=== PATIENT | male | born 1955 | race American Indian/Alaskan Native ===

== ENCOUNTER 2017-06-11 11:21 | Emergency (ER) | payer BC ==
[2017-06-11] MEDS ORDERED: TESSALON PERLES PO ONE (15:10)
--- NOTE | 2017-06-11 15:44 | XRay Report ---
ROUTINE CHEST, TWO VIEWS: HISTORY: Cough. The trachea, heart, mediastinal contour, lung jaimes and bony thorax are unremarkable. IMPRESSION: Unremarkable chest x-ray.
--- NOTE | 2017-06-11 16:41 | Emergency Department Report ---
- General Chief Complaint: Upper Respiratory Infection Stated Complaint: BAD COUGH, NOSE BLEED Time Seen by Provider: 06/11/17 15:09 Source: patient Mode of arrival: Ambulatory Limitations: No Limitations - History of Present Illness Initial Comments: This is a 61-year-old male nontoxic, well nourished in appearance, no acute signs of distress presents to the ED with c/o of dry cough 4 days. Patient denies any recent travels, long car rides, or recent hospital stays. Patient denies any chest pain, shortness of breath, hemoptysis, fever, chills, nausea, vomiting, headache, stiff neck, abdominal pain, numbness, tingling. Patient denies any calf pain or calf tenderness. Patient does state that he takes lisinopril for his hypertension. Patient denies any drug allergies. MD Complaint: cough -: days(s) (4) Severity scale (0 -10): 0 Consistency: constant Improves With: nothing Worsens With: nothing Associated Symptoms: cough. denies: fever, chills, myalgias, diaphoresis, headache, rhinorrhea, nasal congestion, sore throat, stiff neck, chest pain, shortness of breath, abdominal pain, nausea, vomiting, diarrhea, dysuria, rash, confusion, right sweats, weight loss, epistaxis, hoarseness, ear pain Treatments Prior to Arrival: none - Related Data Previous Rx's Medication Instructions Recorded Last Taken Type predniSONE [Deltasone] 40 mg PO QDAY #5 tab 06/11/17 Unknown Rx Allergies Allergy/AdvReac Type Severity Reaction Status Date / Time No Known Allergies Allergy Unverified 06/11/17 11:26 ED Review of Systems ROS: Stated complaint: BAD COUGH, NOSE BLEED Other details as noted in HPI Constitutional: denies: chills, fever Eyes: denies: eye pain, eye discharge, vision change ENT: denies: ear pain, throat pain Respiratory: cough. denies: shortness of breath, wheezing Cardiovascular: denies: chest pain, palpitations Endocrine: no symptoms reported Gastrointestinal: denies: abdominal pain, nausea, diarrhea Genitourinary: denies: urgency, dysuria Musculoskeletal: denies: back pain, joint swelling, arthralgia Skin: denies: rash, lesions Neurological: denies: headache, weakness, paresthesias Psychiatric: denies: anxiety, depression Hematological/Lymphatic: denies: easy bleeding, easy bruising ED Past Medical Hx - Past Medical History Previous Medical History?: Yes Hx Hypertension: Yes Additional medical history: Neck with pulled muscle - Surgical History Past Surgical History?: No - Social History Smoking Status: Never Smoker Substance Use Type: Alcohol, Prescribed - Medications Home Medications: Home Medications Medication Instructions Recorded Confirmed Last Taken Type predniSONE [Deltasone] 40 mg PO QDAY #5 tab 06/11/17 Unknown Rx ED Physical Exam - General Limitations: No Limitations General appearance: alert, in no apparent distress - Head Head exam: Present: atraumatic, normocephalic - Eye Eye exam: Present: normal appearance, PERRL, EOMI Pupils: Present: normal accommodation - ENT ENT exam: Present: normal exam, normal orophraynx, mucous membranes moist, TM's normal bilaterally, normal external ear exam - Neck Neck exam: Present: normal inspection, full ROM. Absent: tenderness, meningismus, lymphadenopathy, thyromegaly - Respiratory Respiratory exam: Present: normal lung sounds bilaterally. Absent: respiratory distress, wheezes, rales, rhonchi, stridor, chest wall tenderness, accessory muscle use, decreased breath sounds, prolonged expiratory - Cardiovascular Cardiovascular Exam: Present: regular rate, normal rhythm, normal heart sounds. Absent: irregular rhythm, systolic murmur, diastolic murmur, rubs, gallop - GI/Abdominal GI/Abdominal exam: Present: soft, normal bowel sounds. Absent: distended, tenderness, guarding, rebound, rigid, diminished bowel sounds - Rectal Rectal exam: Present: deferred - Extremities Exam Extremities exam: Present: normal inspection, full ROM, normal capillary refill. Absent: tenderness, pedal edema, joint swelling, calf tenderness - Back Exam Back exam: Present: normal inspection, full ROM. Absent: tenderness, CVA tenderness (R), CVA tenderness (L), muscle spasm, paraspinal tenderness, vertebral tenderness, rash noted - Neurological Exam Neurological exam: Present: alert, oriented X3, CN II-XII intact, normal gait, reflexes normal - Psychiatric Psychiatric exam: Present: normal affect, normal mood - Skin Skin exam: Present: warm, dry, intact, normal color. Absent: rash - Other Other exam information: Negative Homans test. No calf pain or calf tenderness. ED Course Vital Signs 06/11/17 11:26 Temperature 97.7 F Pulse Rate 97 H Respiratory 18 Rate Blood Pressure 165/99 O2 Sat by Pulse 98 Oximetry - Reevaluation(s) Reevaluation #1: 06/11/17 16:40 Patient is speaking in full sentences with no signs of distress noted. ED Medical Decision Making - Medical Decision Making this is a 61-year-old male that presents with nonproductive cough. Patient is stable and was examined by me. Upon examination and symptoms I believe this is related to lisinopril vs bronchitis. Chest x-ray has been obtained and dictated by radiologist with normal exam. Wells criteria 0 point. Upon examination and symptoms there is no obvious signs of DVT or PE. Patient be treated with prednisone. Patient was instructed Follow-up with a primary care doctor in 3-5 days or if symptoms worsen and continue return to emergency room as soon as possible. At time time of discharge, the patient does not seem toxic or ill in appearance. No acute signs of distress noted. Patient agrees to discharge treatment plan of care. No further questions noted by the patient. Critical care attestation.: If time is entered above; I have spent that time in minutes in the direct care of this critically ill patient, excluding procedure time. ED Disposition Clinical Impression: Cough, Cough due to LETICIA inhibitor, Bronchiolitis Disposition: DC-01 TO HOME OR SELFCARE Is pt being admited?: No Does the pt Need Aspirin: No Condition: Stable Instructions: Prednisone (By mouth), Acute Bronchitis (ED) Additional Instructions: Follow-up with a primary care doctor in 3-5 days or if symptoms worsen and continue return to emergency room as soon as possible. Prescriptions: predniSONE [Deltasone] 40 mg PO QDAY #5 tab Referrals: GAVIN HENRY MD [Primary Care Provider] - 3-5 Days PRIMARY CARE, [Referring] - 3-[address] [facility] [Outside] - 3-5 Days [facility] [Outside] - 3-5 Days Forms: Work/School Release Form(ED)
[2017-06-11 17:00] VITALS: BP 158/99
== END 2017-06-11 16:58 | disposition home or self-care (01) ==
LOC: ED 11:21
DX: J21.9 Acute bronchiolitis, unspecified (principal); I10 Essential (primary) hypertension
CPT/HCPCS: 71046; 96372; 99283; J2930

== ENCOUNTER 2017-11-03 10:27 | Emergency (ER) | payer BC ==
[2017-11-03 11:44] LABS: BUN/Creatinine Ratio 11; Blood Urea Nitrogen 8 mg/dL (9-20); Calcium 8.9 mg/dL (8.4-10.2); Hemolysis Index 34
[2017-11-03 11:53] LABS: Basophils # (Auto) 0.1 K/mm3 (0.0-0.1); Basophils % (Auto) 1.1 % (0.0-1.8); Eosinophils # (Auto) 0.1 K/mm3 (0.0-0.4); Eosinophils % (Auto) 1.4 % (0.0-4.3); Hematocrit 42.1 % (35.5-45.6); Hemoglobin 14.1 gm/dl (11.8-15.2); Lymphocytes # (Auto) 2.6 K/mm3 (1.2-5.4); Lymphocytes % (Auto) 41.3 % (13.4-35.0); Mean Corpuscular HGB Conc 34 % (32-34); Mean Corpuscular Hemoglobin 32 pg (28-32); Mean Corpuscular Volume 95 fl (84-94); Monocytes # (Auto) 0.6 K/mm3 (0.0-0.8); Monocytes % (Auto) 9.6 % (0.0-7.3); Platelet Count 172 K/mm3 (140-440); Red Blood Count 4.43 M/mm3 (3.65-5.03); Red Cell Distribution Width 12.9 % (13.2-15.2)
--- NOTE | 2017-11-03 12:17 | XRay Report ---
ROUTINE CHEST, TWO VIEWS: HISTORY: Shortness of breath. Heart size is appears slightly increased since 06/11/17 exam. There is borderline to mild cardiomegaly and central pulmonary venous congestion on today's exam. The lungs are clear. No evidence for pneumonia, CHF or pneumothorax. IMPRESSION: Borderline to mild cardiomegaly and pulmonary venous congestion but no CHF
--- NOTE | 2017-11-03 12:30 | Emergency Department Report ---
ED Shortness of Breath HPI - General Chief Complaint: Dyspnea/Respdistress Stated Complaint: SHORTNESS OF BREATH Time Seen by Provider: 11/03/17 12:21 Source: patient Mode of arrival: Ambulatory Limitations: No Limitations - History of Present Illness Initial Comments: Patient is 62 years old male with history of hypertension and a recent diagnosis of weak valve according to his description. Patient stated that 2 months ago he had an echo and his offset press operator helper told him that he had a week above and he most likely need a stent. Patient denied any chest pain that he presented with shortness of breath. He stated that is similar to what he is to have. Patient stated that he got short of breath when he is walking. Patient denied any fever or cough. No nausea or vomiting. MD Complaint: shortness of breath - Related Data Previous Rx's Medication Instructions Recorded Last Taken Type predniSONE [Deltasone] 40 mg PO QDAY #5 tab 06/11/17 Unknown Rx Allergies Allergy/AdvReac Type Severity Reaction Status Date / Time No Known Allergies Allergy Unverified 06/11/17 11:26 ED Review of Systems ROS: Stated complaint: SHORTNESS OF BREATH Other details as noted in HPI Comment: All other systems reviewed and negative Constitutional: denies: chills, fever Respiratory: shortness of breath, SOB with exertion, SOB at rest. denies: cough , orthopnea, wheezing Cardiovascular: dyspnea on exertion. 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' - Surgical History Past Surgical History?: No Additional Surgical History: high cholesterol - Social History Smoking Status: Never Smoker Substance Use Type: Alcohol, Prescribed - Medications Home Medications: Home Medications Medication Instructions Recorded Confirmed Last Taken Type predniSONE [Deltasone] 40 mg PO QDAY #5 tab 06/11/17 Unknown Rx ED Physical Exam - General Limitations: No Limitations General appearance: alert, in no apparent distress - Head Head exam: Present: atraumatic, normocephalic, normal inspection - Eye Eye exam: Present: normal appearance - ENT ENT exam: Present: normal exam, normal orophraynx, mucous membranes moist - Neck Neck exam: Present: normal inspection, full ROM. Absent: tenderness, meningismus, lymphadenopathy, thyromegaly - Respiratory Respiratory exam: Present: normal lung sounds bilaterally. Absent: respiratory distress, wheezes, rales, rhonchi, chest wall tenderness, accessory muscle use, decreased breath sounds, prolonged expiratory - Cardiovascular Cardiovascular Exam: Present: regular rate, normal rhythm, normal heart sounds - GI/Abdominal GI/Abdominal exam: Present: soft, normal bowel sounds. Absent: distended, tenderness, guarding, rebound, rigid, organomegaly, mass, bruit, pulsatile mass , hernia - Extremities Exam Extremities exam: Present: normal inspection, full ROM, normal capillary refill - Back Exam Back exam: Present: normal inspection, full ROM. Absent: tenderness, CVA tenderness (R), CVA tenderness (L), muscle spasm, paraspinal tenderness, vertebral tenderness, rash noted - Neurological Exam Neurological exam: Present: alert, oriented X3, CN II-XII intact, normal gait, reflexes normal - Skin Skin exam: Present: warm, intact, normal color ED Course Vital Signs 11/03/17 11/03/17 11/03/17 10:43 10:46 12:46 Temperature 98.4 F 98.7 F Pulse Rate 97 H 93 H 90 Respiratory 20 16 14 Rate Blood Pressure 151/97 Blood Pressure 154/96 140/96 [Right] O2 Sat by Pulse 97 96 Oximetry 11/03/17 11/03/17 11/03/17 13:46 14:46 16:11 Temperature 98.3 F 98.7 F Pulse Rate 83 93 H 90 Respiratory 16 16 20 Rate Blood Pressure Blood Pressure 154/98 158/99 158/99 [Right] O2 Sat by Pulse 95 97 Oximetry ED Medical Decision Making - Lab Data Result diagrams: 11/03/17 11:11 11/03/17 11:11 - EKG Data -: EKG Interpreted by Mn EKG shows normal: sinus rhythm Rate: normal - EKG Data Interpretation: no acute changes - Radiology Data Radiology results: report reviewed Referring Physician: ED DOC Patient Name: KATY GOMES Date of : 1955 Sex: Male Report Date: 2017-11-03 Report Status: Finalized Findings [facility] [address] [place] [address] XRay Report Signed Patient: KATY GOMES MR#: [id number] : 1955 Acct:[id number] Age/Sex: 62 / M ADM Date: 11/03/17 Loc: ED Attending Dr: Ordering Physician: DANILO DOWD MD Date of Service: 11/03/17 Procedure(s): XR chest routine 2V Accession Number(s): [id number] cc: ED MD NILE Fluoro Time In Minutes: ROUTINE CHEST, TWO VIEWS: HISTORY: Shortness of breath. Heart size is appears slightly increased since 06/11/17 exam. There is borderline to mild cardiomegaly and central pulmonary venous congestion on today's exam. The lungs are clear. No evidence for pneumonia, CHF or pneumothorax. IMPRESSION: Borderline to mild cardiomegaly and pulmonary venous congestion but no CHF Transcribed By: TTR Dictated By: LICHA SANCHEZ JR, MD Electronically Authenticated By: LICHA SANCHEZ JR, MD Signed Date/Time: 11/03/17 1207 DD/ 1206 TD/TT: 11/03/17 1207 - Medical Decision Making Patient stated that he is feeling better. Extensive workup was done for this patient today. 2 sets of troponin is negative and before the EKG did not show any acute finding. No evidence of congestive heart failure. D-dimer is negative for possible PE. 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 Patient had already been seen by a offset press operator helper and had an echo done and he was off for surgery but patient denied surgery but he stated that he will go back and talk to his offset press operator helper. Patient will be discharged in stable condition with no active symptoms. I also informed the patient to return to the ER if his symptoms returned or get worse. Critical care attestation.: If time is entered above; I have spent that time in minutes in the direct care of this critically ill patient, excluding procedure time. ED Disposition Clinical Impression: Shortness of breath Disposition: DC-01 TO HOME OR SELFCARE Is pt being admited?: No Condition: Stable Instructions: Dyspnea (ED) Referrals: PRIMARY CARE, [Primary Care Provider] - 3-5 Days Forms: Work/School Release Form(ED)
[2017-11-03 13:35] LABS: INR 0.97 (0.87-1.13)
[2017-11-03 13:36] LABS: Partial Thromboplastin Time 33.9 Sec. (24.2-36.6)
[2017-11-03 15:27] VITALS: BP 158/99
== END 2017-11-03 16:12 | disposition home or self-care (01) ==
LOC: ED 10:27
DX: R06.02 Shortness of breath (principal); I10 Essential (primary) hypertension
CPT/HCPCS: 36415; 71046; 80048; 83880; 84484; 85025; 85379; 85610; 85730; 93005; 93010

== ENCOUNTER 2019-05-31 22:23 | Observation (INO) | payer BC ==
[2019-05-31] MEDS ORDERED: ASPIRIN 325 MG TAB PO ONE (22:44)
--- NOTE | 2019-05-31 23:29 | XRay Report ---
CHEST 1 VIEW INDICATION: MAIN: Chest Pain; Pt c/o difficulty breathing starting today. states he has a history of heart valve problems COMPARISON: 11/03/2017 FINDINGS: Support devices: None Heart: Within normal limits and unchanged. Lungs/Pleura: No acute pulmonary or pleural findings. IMPRESSION: 1. No active disease and no interval change. Signer Name: Charbel Young MD Signed: 05/31/2019 11:24 PM Workstation Name: [id number]
[2019-05-31 23:36] LABS: Hematocrit 41.3 % (35.5-45.6); Hemoglobin 14.4 gm/dl (11.8-15.2); Mean Corpuscular HGB Conc 35 % (32-34); Mean Corpuscular Volume 98 fl (84-94); Platelet Count 166 K/mm3 (140-440); Red Blood Count 4.22 M/mm3 (3.65-5.03); Red Cell Distribution Width 13.5 % (13.2-15.2)
[2019-05-31 23:58] LABS: BUN/Creatinine Ratio 15; Blood Urea Nitrogen 9 mg/dL (9-20); Calcium 9.3 mg/dL (8.4-10.2); Hemolysis Index 15
[2019-06-01 02:01] LABS: Total Cells Counted 100
[2019-06-01 02:03] LABS: Eosinophils % (Manual) 0 % (0.0-4.3)
[2019-06-01 02:04] LABS: Anisocytosis 1+; Basophils % (Manual) 0 % (0.0-1.8)
[2019-06-01 02:26] LABS: Platelet Estimate Consistent w Auto
[2019-06-01] MEDS ORDERED: LISINOPRIL 10 MG TAB PO ONE (06:57)
[2019-06-01] MEDS ORDERED: cloNIDine 0.1 MG TAB PO ONE (06:57)
[2019-06-01] MEDS ORDERED: ASPIRIN 325 MG TAB ONE (07:03)
--- NOTE | 2019-06-01 07:10 | Emergency Department Report ---
ED Shortness of Breath HPI - General Chief Complaint: Dyspnea/Respdistress Stated Complaint: SOB Time Seen by Provider: 06/01/19 06:46 Source: patient Mode of arrival: Ambulatory Limitations: No Limitations - History of Present Illness Initial Comments: 63-year-old male with a past medical history of hypertension and "valve problem" presents to the hospital complains of since yesterday. Symptoms initially occurred yesterday morning while lying down. Patient has continued to have dyspnea on exertion and lying supine the past day. Patient complains of intermittent chronic left-sided chest tightness similar to his pinched nerve pain is experienced in the past. Patient had one episode of vomiting in route to the hospital. He denies cough, fever, recent travel, history of PE/DVT, family history of CAD, or tobacco use. Patient reports he has had a negative stress testing In the past. He does not know the details of his valve problem but states he is being treated medically but a potential "stent is needed." His marine engine machinist apprentice Dr. Bettencourt affiliated with [facility]. Patient takes lisinopril 20 mg twice a day and Atrovent was started 40 mg 2 tabs once a day as well as aspirin 81 mg most days. As per medical record reviews reported patient has history of aortic valve problem based on the ER chart however, patient has not received previous cardiac workup at this hospital. 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 - Related Data Previous Rx's Medication Instructions Recorded Last Taken Type RX: predniSONE [Deltasone] 40 mg PO QDAY #5 tab 06/11/17 Unknown Rx Allergies Allergy/AdvReac Type Severity Reaction Status Date / Time No Known Allergies Allergy Unverified 06/11/17 11:26 ED Review of Systems ROS: Stated complaint: SOB Other details as noted in HPI Comment: All other systems reviewed and negative ED Past Medical Hx - Past Medical History Hx Hypertension: Yes Hx Congestive Heart Failure: Yes Additional medical history: Neck with pulled muscle, mild to moderate MR. nonobstructive CAD - Surgical History Past Surgical History?: No Additional Surgical History: high cholesterol - Social History Smoking Status: Never Smoker Substance Use Type: Alcohol - Medications Home Medications: Home Medications Medication Instructions Recorded Confirmed Last Taken Type RX: predniSONE [Deltasone] 40 mg PO QDAY #5 tab 06/11/17 Unknown Rx ED Physical Exam - General Limitations: No Limitations - Other Other exam information: General: No acute distress Head: Atraumatic Eyes: normal appearance ENT: Moist mucous membranes Neck: Normal appearance, no midline tenderness Chest: Clear to auscultation bilaterally CV: Regular rate and rhythm Abdomen: Soft, normal bowel sounds, nontender, nondistended, no rebound or guarding Back: Normal inspection Extremity: Normal inspection, full range of motion, no calf tenderness or leg edema Neuro: Alert O x 3, no facial asymmetry, speech clear, no gross motor sensory deficit Psych: Appropriate behavior Skin: No rash ED Course Vital Signs 05/31/19 06/01/19 06/01/19 22:42 06:58 07:00 Temperature 98.2 F Pulse Rate 111 H 100 H 98 H Respiratory 20 16 Rate Blood Pressure 187/125 169/103 Blood Pressure 171/120 [Left] O2 Sat by Pulse 99 95 Oximetry 06/01/19 09:07 Temperature Pulse Rate 102 H Respiratory 22 Rate Blood Pressure Blood Pressure 151/109 [Left] O2 Sat by Pulse 96 Oximetry - Consultations Consultation #1: 06/01/19 09:41 I contact ed pt's marine engine machinist apprentice Dr Bolton Pt had a cardiac cath in 2013 showing nonobstructive cad with 60% mid circumflex stenosis stress test 2018 normal 2018: EF 30-35% (suspected non ischemic cardiomyopathy, mild to Moderate MR pt qualifies for AICD based on EF but pt refused Lobster Man questions compliance with meds. ED Medical Decision Making - Lab Data Result diagrams: 05/31/19 23:11 05/31/19 23:11 Lab Results 05/31/19 05/31/19 06/01/19 Range/Units 23:11 23:11 01:41 WBC 10.7 (4.5-11.0) K/mm3 RBC 4.22 (3.65-5.03) M/mm3 Hgb 14.4 (11.8-15.2) gm/dl Hct 41.3 (35.5-45.6) % MCV 98 H (84-94) fl MCH 34 H (28-32) pg MCHC 35 H (32-34) % RDW 13.5 (13.2-15.2) % Plt Count 166 (140-440) K/mm3 Baso % (Auto) Grain Drier Operator Add Manual Diff Complete Total Counted 100 Seg Neuts % (Manual) 80.0 H (40.0-70.0) % Band Neutrophils % 0 % Lymphocytes % (Manual) 12.0 L (13.4-35.0) % Reactive Lymphs % (Man) 0 % Monocytes % (Manual) 8.0 H (0.0-7.3) % Eosinophils % (Manual) 0 (0.0-4.3) % Basophils % (Manual) 0 (0.0-1.8) % Metamyelocytes % 0 % Myelocytes % 0 % Promyelocytes % 0 % Blast Cells % 0 % Nucleated RBC % Not Reportable Seg Neutrophils # Man 8.6 H (1.8-7.7) K/mm3 Band Neutrophils # 0.0 K/mm3 Lymphocytes # (Manual) 1.3 (1.2-5.4) K/mm3 Abs React Lymphs (Man) 0.0 K/mm3 Monocytes # (Manual) 0.9 H (0.0-0.8) K/mm3 Eosinophils # (Manual) 0.0 (0.0-0.4) K/mm3 Basophils # (Manual) 0.0 (0.0-0.1) K/mm3 Metamyelocytes # 0.0 K/mm3 Myelocytes # 0.0 K/mm3 Promyelocytes # 0.0 K/mm3 Blast Cells # 0.0 K/mm3 WBC Morphology Not Reportable Hypersegmented Neuts Not Reportable Hyposegmented Neuts Not Reportable Hypogranular Neuts Not Reportable Smudge Cells Not Reportable Toxic Granulation Not Reportable Toxic Vacuolation Not Reportable Dohle Bodies Not Reportable Pelger-Huet Anomaly Not Reportable Martin Rods Not Reportable Platelet Estimate Consistent w auto Clumped Platelets Not Reportable Plt Clumps, EDTA Not Reportable Large Platelets Not Reportable Giant Platelets Not Reportable Platelet Satelliting Not Reportable Plt Morphology Comment Not Reportable RBC Morphology Not Reportable Dimorphic RBCs Not Reportable Polychromasia Not Reportable Hypochromasia Not Reportable Poikilocytosis Not Reportable Anisocytosis 1+ Microcytosis Not Reportable Macrocytosis Not Reportable Spherocytes Not Reportable Pappenheimer Bodies Not Reportable Sickle Cells Not Reportable Target Cells Not Reportable Tear Drop Cells Not Reportable Ovalocytes Not Reportable Helmet Cells Not Reportable He-[place] Bodies Not Reportable [place] Rings Not Reportable Withams Cells Not Reportable Bite Cells Not Reportable Crenated Cell Not Reportable Elliptocytes Not Reportable Acanthocytes (Spur) Not Reportable Rouleaux Not Reportable Hemoglobin C Crystals Not Reportable Schistocytes Not Reportable Malaria parasites Not Reportable Clay Bodies Not Reportable Hem Pathologist Commnt No D-Dimer (0-234) ng/mlDDU Sodium 141 (137-145) mmol/L Potassium 3.7 (3.6-5.0) mmol/L Chloride 100.4 (98-107) mmol/L Carbon Dioxide 22 (22-30) mmol/L Anion Gap 22 mmol/L BUN 9 (9-20) mg/dL Creatinine 0.6 L (0.8-1.5) mg/dL Estimated GFR > 60 ml/min BUN/Creatinine Ratio 15 % Glucose 104 H (75-100) mg/dL Calcium 9.3 (8.4-10.2) mg/dL Magnesium (1.7-2.3) mg/dL Troponin T < 0.010 < 0.010 (0.00-0.029) ng/mL 06/01/19 06/01/19 06/01/19 Range/Units 01:41 07:03 07:03 WBC (4.5-11.0) K/mm3 RBC (3.65-5.03) M/mm3 Hgb (11.8-15.2) gm/dl Hct (35.5-45.6) % MCV (84-94) fl MCH (28-32) pg MCHC (32-34) % RDW (13.2-15.2) % Plt Count (140-440) K/mm3 Baso % (Auto) Add Manual Diff Total Counted Seg Neuts % (Manual) (40.0-70.0) % Band Neutrophils % % Lymphocytes % (Manual) (13.4-35.0) % Reactive Lymphs % (Man) % Monocytes % (Manual) (0.0-7.3) % Eosinophils % (Manual) (0.0-4.3) % Basophils % (Manual) (0.0-1.8) % Metamyelocytes % % Myelocytes % % Promyelocytes % % Blast Cells % % Nucleated RBC % Seg Neutrophils # Man (1.8-7.7) K/mm3 Band Neutrophils # K/mm3 Lymphocytes # (Manual) (1.2-5.4) K/mm3 Abs React Lymphs (Man) K/mm3 Monocytes # (Manual) (0.0-0.8) K/mm3 Eosinophils # (Manual) (0.0-0.4) K/mm3 Basophils # (Manual) (0.0-0.1) K/mm3 Metamyelocytes # K/mm3 Myelocytes # K/mm3 Promyelocytes # K/mm3 Blast Cells # K/mm3 WBC Morphology Hypersegmented Neuts Hyposegmented Neuts Hypogranular Neuts Smudge Cells Toxic Granulation Toxic Vacuolation Dohle Bodies Pelger-Huet Anomaly Martin Rods Platelet Estimate Clumped Platelets Plt Clumps, EDTA Large Platelets Giant Platelets Platelet Satelliting Plt Morphology Comment RBC Morphology Dimorphic RBCs Polychromasia Hypochromasia Poikilocytosis Anisocytosis Microcytosis Macrocytosis Spherocytes Pappenheimer Bodies Sickle Cells Target Cells Tear Drop Cells Ovalocytes Helmet Cells He-[place] Bodies [place] Rings Withams Cells Bite Cells Crenated Cell Elliptocytes Acanthocytes (Spur) Rouleaux Hemoglobin C Crystals Schistocytes Malaria parasites Clay Bodies Hem Pathologist Commnt D-Dimer 589.76 H (0-234) ng/mlDDU Sodium (137-145) mmol/L Potassium (3.6-5.0) mmol/L Chloride (98-107) mmol/L Carbon Dioxide (22-30) mmol/L Anion Gap mmol/L BUN (9-20) mg/dL Creatinine (0.8-1.5) mg/dL Estimated GFR ml/min BUN/Creatinine Ratio % Glucose (75-100) mg/dL Calcium (8.4-10.2) mg/dL Magnesium 1.50 L (1.7-2.3) mg/dL Troponin T < 0.010 (0.00-0.029) ng/mL - EKG Data -: EKG Interpreted by Ri EKG shows normal: sinus rhythm, intervals (prolonged QT), ST-T waves (LVH with secondary repoll) Rate: tachycardia (110) - EKG Data When compared to previous EKG there are: no significant change - Radiology Data Radiology results: report reviewed CHEST 1 VIEW INDICATION: MAIN: Chest Pain; Pt c/o difficulty breathing starting today. states he has a history of heart valve problems COMPARISON: 11/03/2017 FINDINGS: Support devices: None Heart: Within normal limits and unchanged. Lungs/Pleura: No acute pulmonary or pleural findings. IMPRESSION: 1. No active disease and no interval change. CTA CHEST WITH CONTRAST INDICATION : Shortness of breath, elevated d-dimer. TECHNIQUE: Axial imaging performed through the chest, with contrast bolus timing set to maximize opacification of the pulmonary arteries. Sagittal and coronal reformatted images. 3-plane MIP reformatted images were obtained. All CT scans at this location are performed using CT dose reduction for ALARA by means of automated exposure control. Omnipaque 300 100 mL of intravenous contrast administered. COMPARISON: AP chest dated 05/31/2019 FINDINGS: Bolus: Contrast bolus timing is adequate. PTE: No filling defect is present to suggest PTE. Medi astinum: Mild cardiomegaly is evident. No pericardial effusion. The aorta is normal caliber and widely patent. Normal thyroid gland, tracheobronchial tree and esophagus. No pathologic mediastinal adenopathy. Lungs: Trace bilateral pleural effusions are identified measuring less than 1 cm in thickness. There is minor subpleural atelectasis at the right lung base, otherwise, the lungs are clear. No significant underlying parenchymal lung disease is detected. Bones: Degenerative changes in the spine with nothing acute. Upper abdomen: Limited imaging of the upper abdomen shows nothing acute. IMPRESSION: No evidence for pulmonary embolus. Mild cardiomegaly and trace pleural effusions suggesting mild CHF. - Medical Decision Making sob due chf ekg without acute ischemic changes, qt prolongation improved on repeat, neg trop x 3 in ed last ef 30-25% last year, mild to moderate mr, non obstructive cad pt provided lasix in ed, his am dose of lisinopril and PO kcl, and IV mag (prolonged qt noted) case d/w Pt's marine engine machinist apprentice regarding past cardiac workup - Differential Diagnosis IA, unstable angina, valve stenosis,PE, CHF Critical Care Time: No Critical care attestation.: If time is entered above; I have spent that time in minutes in the direct care of this critically ill patient, excluding procedure time. ED Disposition Clinical Impression: Acute exacerbation of CHF (congestive heart failure), Uncontrolled hypertension, Hypomagnesemia, Prolonged QT interval, Mitral valve regurgitation, Nonischemic cardiomyopathy, CAD (coronary artery disease) Disposition: OP ADMIT IP TO THIS HOSP Is pt being admited?: Yes Condition: Stable Time of Disposition: 09:48 (Dr Rush as per [place])
[2019-06-01] MEDS ORDERED: MAGNESIUM SULFATE 2 GM/50 ML BAG IV ONE (07:11)
--- NOTE | 2019-06-01 09:16 | Cat Scan Report ---
CTA CHEST WITH CONTRAST INDICATION : Shortness of breath, elevated d-dimer. TECHNIQUE: Axial imaging performed through the chest, with contrast bolus timing set to maximize opa cification of the pulmonary arteries. Sagittal and coronal reformatted images. 3-plane MIP reformatte d images were obtained. All CT scans at this location are performed using CT dose reduction for ALAR A by means of automated exposure control. Omnipaque 300 100 mL of intravenous contrast administered. COMPARISON: AP chest dated 05/31/2019 FINDINGS: Bolus: Contrast bolus timing is adequate. PTE: No filling defect is present to suggest PTE. Mediastinum: Mild cardiomegaly is evident. No pericardial effusion. The aorta is normal caliber and widely patent. Normal thyroid gland, tracheobronchial tree and esophagus. No pathologic mediastinal adenopathy. Lungs: Trace bilateral pleural effusions are identified measuring less than 1 cm in thickness. There is minor subpleural atelectasis at the right lung base, otherwise, the lungs are clear. No significa nt underlying parenchymal lung disease is detected. Bones: Degenerative changes in the spine with nothing acute. Upper abdomen: Limited imaging of the upper abdomen shows nothing acute. IMPRESSION: No evidence for pulmonary embolus. Mild cardiomegaly and trace pleural effusions suggesting mild CHF. Signer Name: Haroon Ortega Jr, MD Signed: 06/01/2019 9:12 AM Workstation Name: [id number]
[2019-06-01] MEDS ORDERED: FUROSEMIDE 40 MG/4 ML INJ IV ONE (09:25)
[2019-06-01] MEDS ORDERED: POTASSIUM CHLORIDE ER 20 MEQ TAB PO ONE ×2 (09:26→10:26)
[2019-06-01] MEDS ORDERED: FUROSEMIDE 40 MG/4 ML INJ ONE (10:25)
--- NOTE | 2019-06-01 10:41 | Progress Note ---
Assessment and Plan Assessment and plan: Patient is a 63-year-old male with a past medical history of hypertension and "valve problem" presents to the hospital complains of since yesterday. Symptoms initially occurred yesterday morning while lying down. Patient has continued to have dyspnea on exertion and lying supine the past day. Patient complains of intermittent chronic left-sided chest tightness similar to his pinched nerve pain is experienced in the past. Patient had one episode of vomiting in route to the hospital. He denies cough, fever, recent travel, history of PE/DVT, family history of CAD, or tobacco use. Patient reports he has had a negative stress testing In the past. He does not know the details of his valve problem but states he is being treated medically but a potential "stent is needed." His charging plug placer Dr. Bettencourt affiliated with [facility]. Patient takes lisinopril 20 mg twice a day and Atrovent was started 40 mg 2 tabs once a day as well as aspirin 81 mg most days. As per medical record reviews reported patient has history of aortic valve problem based on the ER chart however, patient has not received previous cardiac workup at this hospital. 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 pCXR Impression: No active disease and no interval change CTA chest Impression: IMPRESSION: No evidence for pulmonary embolus. Mild cardiomegaly and trace pleural effusions suggesting mild CHF. Acute on chronic decompensated systolic heart failure: treat with IV lasix bid, consult Cardiology, order ECHO SIRS, non-infection, no organ dysfunction: treat the heart failure Hypomagensemia: replete and recheck Elevated D-Dimer: CTA chest negative for PE Macrocytosis, borderline thrombocytopenia: inquire about ETOH overuse or vitamin deficiency DVT ppx History Interval history: Patient was seen and examined. Follow-up on current diagnosis. Overnight uneventful as no events directly reported to me. Patient denies any chest pain, shortness breath, nausea/vomiting or severe headaches. Imaging, nursing note, chart, labs and old chart reviewed. Discussed with patient. PMH: as hpi PSH: SH: FH: ROS: Constitutional: denies: fever ENT: denies: throat or neck pain Respiratory: denies: cough, shortness of breath Cardiovascular: denies: chest pain Endocrine: denies unexplained weight loss or gain Gastrointestinal: denies: abdominal pain, nausea Genitourinary: denies: dysuria Rectal: denies no incontinence, no bleeding, no itching, no discharge Musculoskeletal: denies swelling, myaglia, muscle weakness Skin: denies: rash Neurological: denies: headache Hematological/Lymphatic: denies: easy bleeding or easy bruising Allergic/Immunologic: no urticaria, no allergic rhinitis, no anaphylaxis Psych: denies sadness or hopelessness, SI/HI Gen: WDWN, NAD, Awake, Alert, Orientated HEENT: NCAT, EOMI, PERRL, OP Clear Neck: supple, no adenopathy, no thyromegaly, no JVD CVS/Heart: RRR, normal S1S2, pulses present bilaterally Chest/Lungs: CTA B, Symmetrical chest expansion, good air entry bilaterally GI/Abdomen: soft, NTND, good bowel sounds, no guarding or rebound /Bladder: no suprapubic tenderness, no CVA or paraspinal tenderness Extermity/Skin: no c/c/e, no obvious rash MSK: FROM x 4 Neuro: CN 2-12 grossly intact, no new focal deficits Psych: calm Hospitalist Physical - Constitutional Vitals: Temp Pulse Resp BP Pulse Ox 98.2 F 102 H 20 159/101 97 05/31/19 22:42 06/01/19 10:31 06/01/19 10:31 06/01/19 10:31 06/01/19 10:31 Results - Labs CBC & Chem 7: 05/31/19 23:11 05/31/19 23:11 Labs: Laboratory Last Values WBC 10.7 K/mm3 (4.5-11.0) 05/31/19 23:11 RBC 4.22 M/mm3 (3.65-5.03) 05/31/19 23:11 Hgb 14.4 gm/dl (11.8-15.2) 05/31/19 23:11 Hct 41.3 % (35.5-45.6) 05/31/19 23:11 MCV 98 fl (84-94) H 05/31/19 23:11 MCH 34 pg (28-32) H 05/31/19 23:11 MCHC 35 % (32-34) H 05/31/19 23:11 RDW 13.5 % (13.2-15.2) 05/31/19 23:11 Plt Count 166 K/mm3 (140-440) 05/31/19 23:11 Baso % (Auto) Field Director 05/31/19 23:11 Add Manual Diff Complete 05/31/19 23:11 Total Counted 100 05/31/19 23:11 Seg Neuts % (Manual) 80.0 % (40.0-70.0) H 05/31/19 23:11 Band Neutrophils % 0 % 05/31/19 23:11 Lymphocytes % (Manual) 12.0 % (13.4-35.0) L 05/31/19 23:11 Reactive Lymphs % (Man) 0 % 05/31/19 23:11 Monocytes % (Manual) 8.0 % (0.0-7.3) H 05/31/19 23:11 Eosinophils % (Manual) 0 % (0.0-4.3) 05/31/19 23:11 Basophils % (Manual) 0 % (0.0-1.8) 05/31/19 23:11 Metamyelocytes % 0 % 05/31/19 23:11 Myelocytes % 0 % 05/31/19 23:11 Promyelocytes % 0 % 05/31/19 23:11 Blast Cells % 0 % 05/31/19 23:11 Nucleated RBC % Not Reportable 05/31/19 23:11 Seg Neutrophils # Man 8.6 K/mm3 (1.8-7.7) H 05/31/19 23:11 Band Neutrophils # 0.0 K/mm3 05/31/19 23:11 Lymphocytes # (Manual) 1.3 K/mm3 (1.2-5.4) 05/31/19 23:11 Abs React Lymphs (Man) 0.0 K/mm3 05/31/19 23:11 Monocytes # (Manual) 0.9 K/mm3 (0.0-0.8) H 05/31/19 23:11 Eosinophils # (Manual) 0.0 K/mm3 (0.0-0.4) 05/31/19 23:11 Basophils # (Manual) 0.0 K/mm3 (0.0-0.1) 05/31/19 23:11 Metamyelocytes # 0.0 K/mm3 05/31/19 23:11 Myelocytes # 0.0 K/mm3 05/31/19 23:11 Promyelocytes # 0.0 K/mm3 05/31/19 23:11 Blast Cells # 0.0 K/mm3 05/31/19 23:11 WBC Morphology Not Reportable 05/31/19 23:11 Hypersegmented Neuts Not Reportable 05/31/19 23:11 Hyposegmented Neuts Not Reportable 05/31/19 23:11 Hypogranular Neuts Not Reportable 05/31/19 23:11 Smudge Cells Not Reportable 05/31/19 23:11 Toxic Granulation Not Reportable 05/31/19 23:11 Toxic Vacuolation Not Reportable 05/31/19 23:11 Dohle Bodies Not Reportable 05/31/19 23:11 Pelger-Huet Anomaly Not Reportable 05/31/19 23:11 Martin Rods Not Reportable 05/31/19 23:11 Platelet Estimate Consistent w auto 05/31/19 23:11 Clumped Platelets Not Reportable 05/31/19 23:11 Plt Clumps, EDTA Not Reportable 05/31/19 23:11 Large Platelets Not Reportable 05/31/19 23:11 Giant Platelets Not Reportable 05/31/19 23:11 Platelet Satelliting Not Reportable 05/31/19 23:11 Plt Morphology Comment Not Reportable 05/31/19 23:11 RBC Morphology Not Reportable 05/31/19 23:11 Dimorphic RBCs Not Reportable 05/31/19 23:11 Polychromasia Not Reportable 05/31/19 23:11 Hypochromasia Not Reportable 05/31/19 23:11 Poikilocytosis Not Reportable 05/31/19 23:11 Anisocytosis 1+ 05/31/19 23:11 Microcytosis Not Reportable 05/31/19 23:11 Macrocytosis Not Reportable 05/31/19 23:11 Spherocytes Not Reportable 05/31/19 23:11 Pappenheimer Bodies Not Reportable 05/31/19 23:11 Sickle Cells Not Reportable 05/31/19 23:11 Target Cells Not Reportable 05/31/19 23:11 Tear Drop Cells Not Reportable 05/31/19 23:11 Ovalocytes Not Reportable 05/31/19 23:11 Helmet Cells Not Reportable 05/31/19 23:11 He-[place] Bodies Not Reportable 05/31/19 23:11 [place] Rings Not Reportable 05/31/19 23:11 Stew Cells Not Reportable 05/31/19 23:11 Bite Cells Not Reportable 05/31/19 23:11 Crenated Cell Not Reportable 05/31/19 23:11 Elliptocytes Not Reportable 05/31/19 23:11 Acanthocytes (Spur) Not Reportable 05/31/19 23:11 Rouleaux Not Reportable 05/31/19 23:11 Hemoglobin C Crystals Not Reportable 05/31/19 23:11 Schistocytes Not Reportable 05/31/19 23:11 Malaria parasites Not Reportable 05/31/19 23:11 Clay Bodies Not Reportable 05/31/19 23:11 Hem Pathologist Commnt No 05/31/19 23:11 D-Dimer 589.76 ng/mlDDU (0-234) H 06/01/19 07:03 Sodium 141 mmol/L (137-145) 05/31/19 23:11 Potassium 3.7 mmol/L (3.6-5.0) 05/31/19 23:11 Chloride 100.4 mmol/L (98-107) 05/31/19 23:11 Carbon Dioxide 22 mmol/L (22-30) 05/31/19 23:11 Anion Gap 22 mmol/L 05/31/19 23:11 BUN 9 mg/dL (9-20) 05/31/19 23:11 Creatinine 0.6 mg/dL (0.8-1.5) L 05/31/19 23:11 Estimated GFR > 60 ml/min 05/31/19 23:11 BUN/Creatinine Ratio 15 % 05/31/19 23:11 Glucose 104 mg/dL (75-100) H 05/31/19 23:11 Calcium 9.3 mg/dL (8.4-10.2) 05/31/19 23:11 Magnesium 1.50 mg/dL (1.7-2.3) L 06/01/19 01:41 Troponin T < 0.010 ng/mL (0.00-0.029) 06/01/19 07:03
--- NOTE | 2019-06-01 11:19 | History and Physical Report ---
History of Present Illness Date of examination: 06/01/19 Date of admission: 06/01/19 09:55 Chief complaint: SOB History of present illness: Patient is a 63 yo man with a history of CHF, hypertension and dyslipidemia (followed by [facility] Dr. Alejandro Bolton) who presents to [facility] ED with acute onset of severe worsening constant SOB that start 1 day prior to coming here last night. SOB is aggravated by laying down and he wakes up at night with SOB. He has orthopnea and PND. SOB is associated with intermittent chronic left-sided chest tightness similar to his pinched nerve pain is experienced in the past. Patient had one episode of vomiting in route to the hospital. He denies cough, fever, recent travel, history of PE/DVT, family history of CAD, or tobacco use. Patient reports he has had a negative stress testing about 1 year ago at [facility]. He also had a Left heart catherization in the past with an ECHO. He was told that he had a valve problem. He does not know the details of his valve problem but states he is being treated medically but a potential "stent is needed." Patient takes 10mg lisinopril 2 pills once a day, Atorvastatin 40mg daily as well as aspirin 81 mg on most days. He is being admitted for CHF exacerbation. PMH: as hpi PSH: Cardiac catherization at [facility] SH: no smoker, +excessive ETOH, "i drink alcohol while watching the game" I quipped that there are a lot of games, he then admits to drinking 1/2 pt Vodka and 24 oz x 2 of beers on weekends FH: hypertension in mother and she of ovarian cancer, he doesn't know his father's side ROS: Constitutional: denies: fever ENT: denies: throat or neck pain Respiratory: denies: cough, +shortness of breath Cardiovascular: + chest pain Endocrine: denies unexplained weight loss or gain Gastrointestinal: denies: abdominal pain, nausea Genitourinary: denies: dysuria Rectal: denies no incontinence, no bleeding, no itching, no discharge Musculoskeletal: denies swelling, myaglia, muscle weakness Skin: denies: rash Neurological: denies: headache Hematological/Lymphatic: denies: easy bleeding or easy bruising Allergic/Immunologic: no urticaria, no allergic rhinitis, no anaphylaxis Psych: denies sadness or hopelessness, SI/HI Medications and Allergies Allergies Allergy/AdvReac Type Severity Reaction Status Date / Time No Known Allergies Allergy Unverified 06/11/17 11:26 Home Medications Medication Instructions Recorded Confirmed Last Taken Type predniSONE [Deltasone] 40 mg PO QDAY #5 tab 06/11/17 06/01/19 06/01/19 06:00 Rx 40 Active Meds: Active Medications Aspirin (Baby Aspirin) 81 mg PO QDAY JOSE ARMANDO Atorvastatin Calcium (Lipitor) 40 mg PO QHS JOSE ARMANDO Folic Acid (Folvite) 1 mg PO QDAY JOSE ARMANDO Furosemide (Lasix) 20 mg IV 0600,1800 JOSE ARMANDO Lisinopril (Zestril) 40 mg PO QDAY JOSE ARMANDO Thiamine HCl (Vitamin B-1) 100 mg PO QDAY JOSE ARMANDO Exam - Physical Exam Narrative exam: Gen: WDWN, NAD, Awake, Alert, Orientated x3 HEENT: NCAT, EOMI, PERRL, eyes looks slightly blood shot, OP Clear Neck: supple, no adenopathy, no thyromegaly, equivocal JVD CVS/Heart: Regular irregular, normal S1S2, pulses present bilaterally Chest/Lungs: diminished BS bilateral, Symmetrical chest expansion, good air entry bilaterally GI/Abdomen: soft, NT, flank edema, good bowel sounds, no guarding or rebound /Bladder: no suprapubic tenderness, no CVA or paraspinal tenderness Extermity/Skin: no c/c/e, no obvious rash MSK: FROM x 4 Neuro: CN 2-12 grossly intact, no new focal deficits Psych: calm - Constitutional Vitals: Temp Pulse Resp BP Pulse Ox 98.2 F 102 H 20 159/101 97 05/31/19 22:42 06/01/19 10:31 06/01/19 10:31 06/01/19 10:31 06/01/19 10:31 Results - Labs CBC & Chem 7: 05/31/19 23:11 05/31/19 23:11 Labs: Laboratory Last Values WBC 10.7 K/mm3 (4.5-11.0) 05/31/19 23:11 RBC 4.22 M/mm3 (3.65-5.03) 05/31/19 23:11 Hgb 14.4 gm/dl (11.8-15.2) 05/31/19 23:11 Hct 41.3 % (35.5-45.6) 05/31/19 23:11 MCV 98 fl (84-94) H 05/31/19 23:11 MCH 34 pg (28-32) H 05/31/19 23:11 MCHC 35 % (32-34) H 05/31/19 23:11 RDW 13.5 % (13.2-15.2) 05/31/19 23:11 Plt Count 166 K/mm3 (140-440) 05/31/19 23:11 Baso % (Auto) Manager Of Administration 05/31/19 23:11 Add Manual Diff Complete 05/31/19 23:11 Total Counted 100 05/31/19 23:11 Seg Neuts % (Manual) 80.0 % (40.0-70.0) H 05/31/19 23:11 Band Neutrophils % 0 % 05/31/19 23:11 Lymphocytes % (Manual) 12.0 % (13.4-35.0) L 05/31/19 23:11 Reactive Lymphs % (Man) 0 % 05/31/19 23:11 Monocytes % (Manual) 8.0 % (0.0-7.3) H 05/31/19 23:11 Eosinophils % (Manual) 0 % (0.0-4.3) 05/31/19 23:11 Basophils % (Manual) 0 % (0.0-1.8) 05/31/19 23:11 Metamyelocytes % 0 % 05/31/19 23:11 Myelocytes % 0 % 05/31/19 23:11 Promyelocytes % 0 % 05/31/19 23:11 Blast Cells % 0 % 05/31/19 23:11 Nucleated RBC % Not Reportable 05/31/19 23:11 Seg Neutrophils # Man 8.6 K/mm3 (1.8-7.7) H 05/31/19 23:11 Band Neutrophils # 0.0 K/mm3 05/31/19 23:11 Lymphocytes # (Manual) 1.3 K/mm3 (1.2-5.4) 05/31/19 23:11 Abs React Lymphs (Man) 0.0 K/mm3 05/31/19 23:11 Monocytes # (Manual) 0.9 K/mm3 (0.0-0.8) H 05/31/19 23:11 Eosinophils # (Manual) 0.0 K/mm3 (0.0-0.4) 05/31/19 23:11 Basophils # (Manual) 0.0 K/mm3 (0.0-0.1) 05/31/19 23:11 Metamyelocytes # 0.0 K/mm3 05/31/19 23:11 Myelocytes # 0.0 K/mm3 05/31/19 23:11 Promyelocytes # 0.0 K/mm3 05/31/19 23:11 Blast Cells # 0.0 K/mm3 05/31/19 23:11 WBC Morphology Not Reportable 05/31/19 23:11 Hypersegmented Neuts Not Reportable 05/31/19 23:11 Hyposegmented Neuts Not Reportable 05/31/19 23:11 Hypogranular Neuts Not Reportable 05/31/19 23:11 Smudge Cells Not Reportable 05/31/19 23:11 Toxic Granulation Not Reportable 05/31/19 23:11 Toxic Vacuolation Not Reportable 05/31/19 23:11 Dohle Bodies Not Reportable 05/31/19 23:11 Pelger-Huet Anomaly Not Reportable 05/31/19 23:11 Martin Rods Not Reportable 05/31/19 23:11 Platelet Estimate Consistent w auto 05/31/19 23:11 Clumped Platelets Not Reportable 05/31/19 23:11 Plt Clumps, EDTA Not Reportable 05/31/19 23:11 Large Platelets Not Reportable 05/31/19 23:11 Giant Platelets Not Reportable 05/31/19 23:11 Platelet Satelliting Not Reportable 05/31/19 23:11 Plt Morphology Comment Not Reportable 05/31/19 23:11 RBC Morphology Not Reportable 05/31/19 23:11 Dimorphic RBCs Not Reportable 05/31/19 23:11 Polychromasia Not Reportable 05/31/19 23:11 Hypochromasia Not Reportable 05/31/19 23:11 Poikilocytosis Not Reportable 05/31/19 23:11 Anisocytosis 1+ 05/31/19 23:11 Microcytosis Not Reportable 05/31/19 23:11 Macrocytosis Not Reportable 05/31/19 23:11 Spherocytes Not Reportable 05/31/19 23:11 Pappenheimer Bodies Not Reportable 05/31/19 23:11 Sickle Cells Not Reportable 05/31/19 23:11 Target Cells Not Reportable 05/31/19 23:11 Tear Drop Cells Not Reportable 05/31/19 23:11 Ovalocytes Not Reportable 05/31/19 23:11 Helmet Cells Not Reportable 05/31/19 23:11 He-Enetai Bodies Not Reportable 05/31/19 23:11 Canterbury Rings Not Reportable 05/31/19 23:11 Stew Cells Not Reportable 05/31/19 23:11 Bite Cells Not Reportable 05/31/19 23:11 Crenated Cell Not Reportable 05/31/19 23:11 Elliptocytes Not Reportable 05/31/19 23:11 Acanthocytes (Spur) Not Reportable 05/31/19 23:11 Rouleaux Not Reportable 05/31/19 23:11 Hemoglobin C Crystals Not Reportable 05/31/19 23:11 Schistocytes Not Reportable 05/31/19 23:11 Malaria parasites Not Reportable 05/31/19 23:11 Clay Bodies Not Reportable 05/31/19 23:11 Hem Pathologist Commnt No 05/31/19 23:11 D-Dimer 589.76 ng/mlDDU (0-234) H 06/01/19 07:03 Sodium 141 mmol/L (137-145) 05/31/19 23:11 Potassium 3.7 mmol/L (3.6-5.0) 05/31/19 23:11 Chloride 100.4 mmol/L (98-107) 05/31/19 23:11 Carbon Dioxide 22 mmol/L (22-30) 05/31/19 23:11 Anion Gap 22 mmol/L 05/31/19 23:11 BUN 9 mg/dL (9-20) 05/31/19 23:11 Creatinine 0.6 mg/dL (0.8-1.5) L 05/31/19 23:11 Estimated GFR > 60 ml/min 05/31/19 23:11 BUN/Creatinine Ratio 15 % 05/31/19 23:11 Glucose 104 mg/dL (75-100) H 05/31/19 23:11 Calcium 9.3 mg/dL (8.4-10.2) 05/31/19 23:11 Magnesium 1.50 mg/dL (1.7-2.3) L 06/01/19 01:41 Troponin T < 0.010 ng/mL (0.00-0.029) 06/01/19 07:03 Assessment and Plan Assessment and plan: Patient is a 63 yo man with a history of CHF, hypertension and dyslipidemia (followed by [facility] Dr. Alejandro Bolton) who presents to [facility] ED with acute onset of severe worsening constant SOB that start 1 day prior to coming here last night. SOB is aggravated by laying down and he wakes up at night with SOB. He has orthopnea and PND. SOB is associated with intermittent chronic left-sided chest tightness similar to his pinched nerve pain is experienced in the past. Patient had one episode of vomiting in route to the hospital. He denies cough, fever, recent travel, history of PE/DVT, family history of CAD, or tobacco use. Patient reports he has had a negative stress testing about 1 year ago at [facility]. He also had a Left heart catherization in the past with an ECHO. He was told that he had a valve problem. He does not know the details of his valve problem but states he is being adelina vignesh medically but a potential "stent is needed." Patient takes 10mg lisinopril 2 pills once a day, Atorvastatin 40mg daily as well as aspirin 81 mg on most days. He is being admitted for CHF exacerbation. As per medical record reviews reported patient has history of aortic valve probl em based on the ER chart however, patient has not received previous cardiac workup at this hospital. Dr. Norris so diligently contacted pt's biologist aide Dr Augustus Bolton ([facility]) at 9:41am Pt had a cardiac cath in 2013 showing nonobstructive cad with 60% mid circumflex stenosis stress test 2018 normal 2018: EF 30-35% (suspected non ischemic cardiomyopathy, mild to Moderate MR pt qualifies for AICD based on EF but pt refused Birth Certificate Clerk questions compliance with meds. * pCXR Impression: No active disease and no interval change * CTA chest Impression: IMPRESSION: No evidence for pulmonary embolus. Mild cardiomegaly and trace pleural effusions suggesting mild CHF. Acute on chronic decompensated systolic heart failure: treat with IV lasix bid, consult Cardiology, order ECHO SIRS, non-infection, no organ dysfunction: treat the heart failure Malignant hypertension: increase lisinopril from 20mg/d to 40mg/day, add iv lasix Chest pains: Consult Cardiology, treat with asa/statin/ntg prn Dyslipidemia: liptor and check TSH and Lipitor Hypomagensemia: replete and recheck Elevated D-Dimer: CTA chest negative for PE Macrocytosis, borderline thrombocytopenia: + ETOH overuse, add thiamine, folate, CIWA protocol, get UDS and serum ETOH levels DVT ppx sq heparin EKG #2 says afib but p waves present, possibly aflutter: consult Cardiology
[2019-06-01] MEDS ORDERED: HALOPERIDOL LACTATE 5 MG/1 ML INJ IV PRN (11:23)
[2019-06-01] MEDS ORDERED: LORazepam 2 MG/ML VIAL IV PRN ×2 (11:23)
[2019-06-01] MEDS ORDERED: NITROGLYCERIN 0.4 MG TAB SUBL SL PRN (11:26)
[2019-06-01] MEDS ORDERED: ACETAMINOPHEN 325 MG TAB PO PRN (11:56)
[2019-06-01] MEDS ORDERED: ONDANSETRON 4 MG/2 ML INJ IV PRN (11:56)
[2019-06-01] MEDS ORDERED: POLYETHYLENE GLYCOL 3350 17 GM POWDER PO PRN (11:56)
[2019-06-01] MEDS ORDERED: HYDROcodone/ACETAMINOPHEN 5-325 MG TAB PO PRN (11:56)
[2019-06-01] MEDS ORDERED: MORPHINE 2 MG/1 ML INJ IV PRN (11:56)
[2019-06-01] MEDS ORDERED: MELATONIN 5 MG TAB PO PRN (11:57)
[2019-06-01] MEDS: THIAMINE 100 MG TAB PO SCH (12:44)
[2019-06-01] MEDS: FOLIC ACID 1 MG TAB PO SCH (12:44)
[2019-06-01] MEDS: LISINOPRIL 40 MG TAB PO SCH (12:44)
--- NOTE | 2019-06-01 13:10 | Consultation ---
History of Present Illness Consult date: 06/01/19 Requesting physician: NAZIA GAONA Consult reason: shortness of breath History of present illness: The patient is followed by a it support specialist at [facility] in [place], [place]. According to information obtained by the ER physician from his it support specialist, he has a history of nonischemic cardiomyopathy and nonobstructive CAD documented on coronary angiography in 2013. He was reported to have 60% stenosis of the circumflex coronary artery at that time. He reportedly had a negative stress test in 2018 and an ejection fraction of 30- 35%. It was also reported that he had declined ICD implantation. The patient claims that he had been out of his antihypertensive medication at time of presentation. He presented to the ER with onset of dyspnea yesterday morning. he claims that it woke him up from sleep. He denies chest pain. Prior to that, he claims that he was doing well. Past History Past Medical History: CAD, heart failure, hypertension, hyperlipidemia Past Surgical History: No surgical history Social history: denies: smoking, alcohol abuse Family history: denies: CAD Medications and Allergies Allergies Allergy/AdvReac Type Severity Reaction Status Date / Time No Known Allergies Allergy Unverified 06/11/17 11:26 Home Medications Medication Instructions Recorded Confirmed Last Taken Type predniSONE [Deltasone] 40 mg PO QDAY #5 tab 06/11/17 06/01/19 06/01/19 06:00 Rx 40 Active Meds: Active Medications Acetaminophen (Tylenol) 650 mg PO Q6H PRN PRN Reason: Non Cardiac Pain or Temp>100.5 Acetaminophen/Hydrocodone Bitart (Lowber 5/325) 1 each PO Q4H PRN PRN Reason: Pain, Moderate (4-6) Aspirin (Baby Aspirin) 81 mg PO QDAY JOSE ARMANDO Atorvastatin Calcium (Lipitor) 40 mg PO QHS JOSE ARMANDO Folic Acid (Folvite) 1 mg PO QDAY JOSE ARMANDO Last Admin: 06/01/19 12:44 Dose: 1 mg Documented by: Furosemide (Lasix) 20 mg IV 0600,1800 JOSE ARMANDO Haloperidol Lactate (Haldol) 5 mg IV Q1H PRN PRN Reason: Unrespon. to mult. doses BZD's Heparin Sodium (Porcine) (Heparin) 5,000 unit SUB-Q Q12HR JOSE ARMANDO Labetalol HCl (Labetalol) 10 mg IV Q4H PRN PRN Reason: Blood Pressure Lisinopril (Zestril) 40 mg PO QDAY [facility] Last Admin: 06/01/19 12:44 Dose: 40 mg Documented by: Lorazepam (Ativan) 2 mg IV Q1H PRN PRN Reason: CIWA-Ar 8-15 Lorazepam (Ativan) 4 mg IV Q1H PRN PRN Reason: CIWA-Ar 16-25 Melatonin (Melatonin) 10 mg PO QHS PRN PRN Reason: Sleep Morphine Sulfate (Morphine) 2 mg IV Q4H PRN PRN Reason: Pain , Severe (7-10) Nitroglycerin (Nitrostat) 0.4 mg SL .Q5MIN PRN PRN Reason: Chest Pain Ondansetron HCl (Zofran) 4 mg IV Q4H PRN PRN Reason: Nausea And Vomiting Pantoprazole Sodium (Protonix) 40 mg PO QDAY [facility] Polyethylene Glycol (Miralax 3350) 17 gm PO QDAY PRN PRN Reason: Constipation Thiamine HCl (Vitamin B-1) 100 mg PO QDAY [facility] Last Admin: 06/01/19 12:44 Dose: 100 mg Documented by: Review of Systems Constitutional: no fever, no chills Ears, nose, mouth and throat: no ear pain, no ear discharge, no sore throat Cardiovascular: orthopnea, shortness of breath, dyspnea on exertion, no chest pain Respiratory: shortness of breath, dyspnea on exertion, no cough, no hemoptysis Gastrointestinal: no abdominal pain, no nausea, no vomiting, no diarrhea, no constipation Genitourinary Male: no dysuria, no urinary frequency Rectal: no pain, no bleeding Musculoskeletal: no neck stiffness, no neck pain, no myalgias Integumentary: no rash Neurological: no weakness, no parathesias, no numbness, no headaches Endocrine: no cold intolerance, no heat intolerance Hematologic/Lymphatic: no easy bruising, no easy bleeding Allergic/Immunologic: no urticaria, no wheezing Physical Examination Vital Signs Last Vital Signs Temp 98.2 F 05/31/19 22:42 Pulse 102 H 06/01/19 10:31 Resp 20 06/01/19 10:31 BP 159/101 06/01/19 10:31 Pulse Ox 97 06/01/19 10:31 General appearance: no acute distress HEENT: Positive: EOMI, Normocephaly, Mucus Membranes Moist Neck: Positive: neck supple, trachea midline Cardiac: Positive: Reg Rate and Rhythm, S1/S2 Lungs: Positive: clear to auscultation Neuro: Positive: Grossly Intact Abdomen: Positive: Soft, Active Bowel Sounds Skin: Positive: Clear. Negative: Rash Extremities: Present: normal. Absent: edema Results 05/31/19 23:11 05/31/19 23:11 CBC 05/31/19 Range/Units 23:11 WBC 10.7 (4.5-11.0) K/mm3 RBC 4.22 (3.65-5.03) M/mm3 Hgb 14.4 (11.8-15.2) gm/dl Hct 41.3 (35.5-45.6) % Plt Count 166 (140-440) K/mm3 Comprehensive Metabolic Panel 05/31/19 Range/Units 23:11 Sodium 141 (137-145) mmol/L Potassium 3.7 (3.6-5.0) mmol/L Chloride 100.4 (98-107) mmol/L Carbon Dioxide 22 (22-30) mmol/L BUN 9 (9-20) mg/dL Creatinine 0.6 L (0.8-1.5) mg/dL Glucose 104 H (75-100) mg/dL Calcium 9.3 (8.4-10.2) mg/dL - Imaging and Cardiology EKG: image reviewed EKG interpretations - Telemetry EKG Rhythm: Sinus Rhythm - EKG Sinus rhythms and dysrhythmias: sinus rhythm Chamber hypertrophy or enlargement: left ventricular hypertro Repolarization changes or abnormalities: repolarization abn secondary to ventricular hypertrophy Assessment and Plan I agree with diuretic therapy. Optimize antihypertensive regimen. Obtain echocardiogram. If he is stable in a.m., he may be discharged home to follow-up with his it support specialist shortly. - Patient Problems (1) Acute on chronic HFrEF (heart failure with reduced ejection fraction) Current Visit: Yes Status: Acute (2) Hypertensive urgency Current Visit: Yes Status: Acute (3) Nonischemic cardiomyopathy Current Visit: Yes Status: Chronic (4) CAD (coronary artery disease) Current Visit: Yes Status: Chronic Qualifiers: Coronary Disease-Associated Artery/Lesion type: tribe artery
[2019-06-01 13:18] LABS: Amphetamine Screen,Urine PRESUMPTIVE NEGATIVE; Benzodiazepines Screen,Urine PRESUMPTIVE NEGATIVE; Cannabinoid Screen,Urine PRESUMPTIVE NEGATIVE; Cocaine Screen,Urine PRESUMPTIVE NEGATIVE; Methadone Screen,Urine PRESUMPTIVE NEGATIVE; Opiate Screen,Urine PRESUMPTIVE NEGATIVE
[2019-06-01] MEDS: carvediloL 6.25 MG TAB PO SCH ×2 (14:09→22:10)
[2019-06-01] MEDS: amLODIPine 5 MG TAB PO SCH (14:09)
[2019-06-01] MEDS: SPIRONOLACTONE 25 MG TAB PO SCH (17:24)
[2019-06-01] MEDS: FUROSEMIDE 20 MG/2 ML INJ IV SCH (17:24)
[2019-06-02] MEDS: FUROSEMIDE 20 MG/2 ML INJ IV SCH (06:39)
[2019-06-02 08:06] VITALS: BP 147/98
[2019-06-02 08:46] LABS: Hematocrit 45.2 % (35.5-45.6); Hemoglobin 15.4 gm/dl (11.8-15.2); Mean Corpuscular HGB Conc 34 % (32-34); Mean Corpuscular Volume 99 fl (84-94); Platelet Count 176 K/mm3 (140-440); Red Blood Count 4.57 M/mm3 (3.65-5.03); Red Cell Distribution Width 13.5 % (13.2-15.2)
[2019-06-02 09:27] LABS: BUN/Creatinine Ratio 14; Blood Urea Nitrogen 13 mg/dL (9-20); Calcium 9.3 mg/dL (8.4-10.2); Hemolysis Index 16
[2019-06-02 09:33] LABS: Alanine Aminotransferase 37 units/L (7-56); Albumin 4.3 g/dL (3.9-5); BUN/Creatinine Ratio 14; Blood Urea Nitrogen 13 mg/dL (9-20); Calcium 9.4 mg/dL (8.4-10.2); Chol/HDL Ratio 2.69 %; HDL Cholesterol 66 mg/dL (40-59); Hemolysis Index 17; LDL Cholesterol,Direct 105 mg/dL (50-130)
[2019-06-02] MEDS: THIAMINE 100 MG TAB PO SCH (09:33)
[2019-06-02] MEDS: amLODIPine 5 MG TAB PO SCH (09:34)
[2019-06-02] MEDS: carvediloL 6.25 MG TAB PO SCH (09:34)
[2019-06-02] MEDS: FOLIC ACID 1 MG TAB PO SCH (09:34)
[2019-06-02] MEDS: SPIRONOLACTONE 25 MG TAB PO SCH (09:35)
[2019-06-02] MEDS: LISINOPRIL 40 MG TAB PO SCH (09:35)
[2019-06-02] MEDS ORDERED: ASPIRIN 81 MG TAB CHEW PO SCH (10:00)
[2019-06-02] MEDS ORDERED: PANTOPRAZOLE 40 MG TAB PO SCH (10:00)
--- NOTE | 2019-06-02 10:26 | Discharge Summary ---
Providers - Providers Date of Admission: 06/01/19 11:30 Date of discharge: 06/02/19 Attending physician: NAZIA GAONA 06/01/19 11:04 Consult to Physician [CONS] Routine Comment: Consulting Provider: ADRIANA TATE Physician Instructions: Reason For Exam: CHF exacerbation Primary care physician: REGISTRY NURSE Hospitalization Condition: Stable Hospital course: Patient is a 63 yo man with a history of CHF, hypertension and dyslipidemia (followed by [facility] Dr. Alejandro Bolton) who presents to [facility] ED with acute onset of severe worsening constant SOB that start 1 day prior to coming here last night. SOB is aggravated by laying down and he wakes up at night with SOB. He has orthopnea and PND. SOB is associated with intermittent chronic left-sided chest tightness similar to his pinched nerve pain is experienced in the past. Patient had one episode of vomiting in route to the hospital. He denies cough, fever, recent travel, history of PE/DVT, family history of CAD, or tobacco use. Patient reports he has had a negative stress testing about 1 year ago at [facility] [place]. He also had a Left heart catherization in the past with an ECHO. He was told that he had a valve problem. He does not know the details of his valve problem but states he is being treated medically but a potential "stent is needed." Patient takes 10mg lisinopril 2 pills once a day, Atorvastatin 40mg daily as well as aspirin 81 mg on most days. He is being admitted for CHF exacerbation. As per medical record reviews reported patient has history of aortic valve problem based on the ER chart however, patient has not received previous cardiac workup at this hospital. Dr. Norris so diligently contacted pt's tooth polisher Dr Augustus Bolton ([facility] affiliated) at 9:41am Pt had a cardiac cath in 2013 showing nonobstructive cad with 60% mid circumflex stenosis stress test 2018 normal 2018: EF 30-35% (suspected non ischemic cardiomyopathy, mild to Moderate MR pt qualifies for AICD based on EF but pt refused Typing Teacher questions compliance with meds. * pCXR Impression: No active disease and no interval change * CTA chest Impression: IMPRESSION: No evidence for pulmonary embolus. Mild cardiomegaly and trace pleural effusions suggesting mild CHF. * TTE est EF 25-30% Discharge Diagnoses: Acute on chronic decompensated systolic heart failure: treat with IV lasix bid, consult Cardiology, order ECHO SIRS, non-infection, no organ dysfunction: treat the heart failure Malignant hypertension: increase lisinopril from 20mg/d to 40mg/day, add iv lasix Chest pains: Consult Cardiology, treat with asa/statin/ntg prn Dyslipidemia: liptor and check TSH and Lipitor Hypomagensemia: replete and recheck Elevated D-Dimer: CTA chest negative for PE Macrocytosis, borderline thrombocytopenia: + ETOH overuse, add thiamine, folate, CIWA protocol, get UDS and serum ETOH levels DVT ppx sq heparin EKG #2 says afib but p waves present, ruled out aflutter: consulted Cardiology, input noted, unlikely Patient stopped taking his Coreg 25mg bid, he thought the new medication, Atorvastatin was a substitute for the coreg. Disposition: DC-01 TO HOME OR SELFCARE Time spent for discharge: 36 minutes Core Measure Documentation - Palliative Care Palliative Care/ Comfort Measures: Not Applicable - Core Measures Any of the following diagnoses?: none - VTE Discharge Requirements Deep Vein Thrombosis/Pulmonary Embolism Present on Admission: No Has pt received <5 days of overlap therapy or INR<2.0: No Anticoagulant overlap therapy prescribed at discharge: No Contraindication No Overlap Therapy order at DC: Not Indicated Exam - Physical Exam Narrative exam: Gen: WDWN, NAD, Awake, Alert, Orientated x3 HEENT: NCAT, EOMI, PERRL, eyes looks slightly blood shot, OP Clear Neck: supple, no adenopathy, no thyromegaly, equivocal JVD CVS/Heart: Regular irregular, normal S1S2, pulses present bilaterally Chest/Lungs: diminished BS bilateral, Symmetrical chest expansion, good air entry bilaterally GI/Abdomen: soft, NT, flank edema, good bowel sounds, no guarding or rebound /Bladder: no suprapubic tenderness, no CVA or paraspinal tenderness Extermity/Skin: no c/c/e, no obvious rash MSK: FROM x 4 Neuro: CN 2-12 grossly intact, no new focal deficits Psych: calm - Constitutional Vitals: Temp Pulse Resp BP Pulse Ox 98.5 F 82 18 147/98 96 06/02/19 00:33 06/02/19 07:49 06/02/19 05:45 06/02/19 05:45 06/02/19 05:45 Plan Activity: other (no strenous activity until cleared by your Typing Teacher) Diet: low salt Special Instructions: record daily BP diary Additional Instructions: take new medications to Dr. Alejandro Bolton: -Added lasix and Aldactone. -reduced Carvediolol. Heart function/EF is approx 25-30% now Follow up with: PRIMARY CARE, [Primary Care Provider] - 7 Days Prescriptions: RX: Spironolactone [Aldactone] 25 mg PO QDAY #30 tablet Furosemide [Lasix] 20 mg PO BID #60 tablet RX: Thiamine [Vitamin B-1] 100 mg PO QDAY #30 tablet RX: lisinopriL [Zestril TAB] 2 tab PO QDAY #60 tablet
[2019-06-02] MEDS ORDERED: HEPARIN 5,000 UNIT/1 ML VIAL SUB-Q SCH (22:00)
== END 2019-06-02 11:17 | disposition home or self-care (01) ==
LOC: ED 22:23 → 4A 06-01 09:55 → INTOOBSV 06-01 11:30 → OBSVTOIN 06-01 11:30
PROVIDERS: ADMIT Internal Medicine; ATTEND Internal Medicine
DX: I11.0 Hypertensive heart disease with heart failure (principal); I50.23 Acute on chronic systolic (congestive) heart failure; I25.10 Atherosclerotic heart disease of native coronary artery without angina pectoris; I34.0 Nonrheumatic mitral (valve) insufficiency; I42.8 Other cardiomyopathies; R94.31 Abnormal electrocardiogram [ECG] [EKG]; E83.42 Hypomagnesemia; E78.5 Hyperlipidemia, unspecified; R11.10 Vomiting, unspecified
CPT/HCPCS: 36415; 71045; 71275; 80048; 80053; 80061; 80307; 83735; 84443; 84484; 85007; 85025; 85027; 85379; 93005; 93010; 93306; 96365; 96374; 96375; 96376; 99285; A9270; G0378; J1940; J3475; Q9967; 80320; G0480

== ENCOUNTER 2019-10-29 13:06 | Emergency (ER) | payer BC ==
--- NOTE | 2019-10-29 14:01 | XRay Report ---
CHEST 2 VIEWS INDICATION: sob. COMPARISON: 05/31/2019 FINDINGS: SUPPORT DEVICES: None. HEART: Within normal limits. LUNGS/PLEURA: No acute air space or interstitial disease. No pneumothorax. ADDITIONAL FINDINGS: None. IMPRESSION: 1. No acute findings. Signer Name: Fred Melendez MD Signed: 10/29/2019 1:57 PM Workstation Name: [id number]
[2019-10-29 14:07] LABS: Basophils # (Auto) 0.1 K/mm3 (0.0-0.1); Basophils % (Auto) 0.7 % (0.0-1.8); Eosinophils % (Auto) 0.3 % (0.0-4.3); Hematocrit 42.1 % (35.5-45.6); Hemoglobin 13.9 gm/dl (11.8-15.2); Lymphocytes # (Auto) 1.2 K/mm3 (1.2-5.4); Lymphocytes % (Auto) 12.3 % (13.4-35.0); Mean Corpuscular HGB Conc 33 % (32-34); Mean Corpuscular Volume 95 fl (84-94); Monocytes # (Auto) 0.9 K/mm3 (0.0-0.8); Monocytes % (Auto) 9.2 % (0.0-7.3); Platelet Count 149 K/mm3 (140-440); Red Blood Count 4.42 M/mm3 (3.65-5.03); Red Cell Distribution Width 13.3 % (13.2-15.2)
[2019-10-29 14:20] LABS: INR 1.14 (0.87-1.13)
[2019-10-29 14:32] LABS: BUN/Creatinine Ratio 10; Blood Urea Nitrogen 8 mg/dL (9-20); Calcium 9.1 mg/dL (8.4-10.2); Hemolysis Index 8
[2019-10-29] MEDS ORDERED: FUROSEMIDE 20 MG/2 ML INJ IV ONE (15:12)
--- NOTE | 2019-10-29 15:15 | Emergency Department Report ---
HPI - General Chief Complaint: Dyspnea/Respdistress Time Seen by Provider: 10/29/19 14:49 - HPI HPI: 64-year-old -English male presents to the emergency department with a complaint of a 2-day history of shortness of breath. Patient also has orthopnea and has been sleeping upright in a chair for the past 2 days. He denies any fever, cough, lower extremity edema, chest pain. The patient has been taking his home medications but otherwise has not taken anything else for his symptoms prior to presentation. Denies any tobacco use. He follows with Dr. Hayder Bolton for cardiology. No recent travel or sick contacts at home. No known exposure to anyone with Covid 19. ED Past Medical Hx - Past Medical History Previous Medical History?: Yes Hx Hypertension: Yes Hx Congestive Heart Failure: Yes Additional medical history: Neck with pulled muscle, mild to moderate MR. nonobstructive CAD - Surgical History Past Surgical History?: Yes Additional Surgical History: high cholesterol - Social History Smoking Status: Never Smoker Substance Use Type: None - Medications Home Medications: Home Medications Medication Instructions Recorded Confirmed Last Taken Type Acetaminophen [Acetaminophen TAB] 1 tab PO Q6H PRN #15 tablet 06/02/19 Unknown Rx Aspirin [Aspirin BABY CHEW TAB] 81 mg PO QDAY #30 tab.chew 06/02/19 Unknown Rx AtorvaSTATin [Lipitor] 40 mg PO QHS #30 tablet 06/02/19 Unknown Rx Furosemide [Lasix] 20 mg PO BID #60 tablet 06/02/19 Unknown Rx Spironolactone [Aldactone] 25 mg PO QDAY #30 tablet 06/02/19 Unknown Rx Thiamine [Vitamin B-1] 100 mg PO QDAY #30 tablet 06/02/19 Unknown Rx amLODIPine 5 mg PO QDAY #30 tablet 06/02/19 Unknown Rx lisinopriL [Zestril TAB] 2 tab PO QDAY #60 tablet 06/02/19 Unknown Rx Furosemide [Lasix] 20 mg PO BID #10 tablet 10/29/19 Unknown Rx ED Review of Systems ROS: Stated complaint: SOB Other details as noted in HPI Comment: All other systems reviewed and negative Constitutional: denies: chills, fever Eyes: denies: eye pain, vision change ENT: denies: ear pain, throat pain Respiratory: shortness of breath. denies: cough Cardiovascular: denies: chest pain, edema Gastrointestinal: denies: abdominal pain, vomiting Genitourinary: denies: dysuria, discharge Musculoskeletal: denies: back pain, arthralgia Skin: denies: rash, lesions Neurological: denies: headache, weakness Physical Exam - Physical Exam Vital Signs: Vital Signs 10/29/19 13:15 Temperature 97.3 F L Pulse Rate 111 H Respiratory 20 Rate Blood Pressure 163/101 O2 Sat by Pulse 97 Oximetry Physical Exam: GENERAL: The patient is well-developed well-nourished. HENT: Normocephalic. Atraumatic. Patient has moist mucous membranes. EYES: Extraocular motions are intact. Pupils equal reactive to light bilaterally. NECK: Supple. Trachea is midline. CHEST/LUNGS: Clear to auscultation. There is no respiratory distress noted. HEART/CARDIOVASCULAR: Regular. There is no tachycardia. There is no murmur. ABDOMEN: Abdomen is soft, nontender. Patient has normal bowel sounds. There is no abdominal distention. SKIN: Skin is warm and dry. NEURO: The patient is awake, alert, and oriented. The patient is cooperative. The patient has no focal neurologic deficits. Normal speech. MUSCULOSKELETAL: There is no tenderness or deformity. There is no limitation range of motion. There is no evidence of acute injury. ED Course Vital Signs 10/29/19 13:15 Temperature 97.3 F L Pulse Rate 111 H Respiratory 20 Rate Blood Pressure 163/101 O2 Sat by Pulse 97 Oximetry ED Medical Decision Making - Lab Data Result diagrams: 10/29/19 13:40 10/29/19 13:40 - EKG Data -: EKG Interpreted by Me EKG shows normal: sinus rhythm, axis (Left axis deviation), intervals, QRS complexes (Q waves to the inferior leads, LVH), ST-T waves Rate: tachycardia (103 bpm) - EKG Data When compared to previous EKG there are: no significant change Interpretation: unchanged when compared t (06/01/19) - Radiology Data Radiology results: report reviewed, image reviewed interpreted by me: Chest x-ray does not show any acute process. There are no pleural effusions, obvious pneumonia and there is no pneumothorax. CTA CHEST WITH IV CONTRAST INDICATION / CLINICAL INFORMATION: MAIN: SOB, elevated dimer 100mm 350omni. TECHNIQUE: Axial CT images were obtained through the chest after injection of 100 mL Omnipaque 350 IV contrast. 3 plane MIP and/or 3D reconstructions were produced. All CT scans at this location are performed using CT dose reduction for ALARA by means of automated exposure control. COMPARISON: Chest CT 06/01/2019 FINDINGS: PULMONARY ARTERIES: No pulmonary emboli. THORACIC AORTA: No significant abnormality. HEART: Stable cardiomegaly. CORONARY ARTERIES: No significant calcification. PLEURA: No pleural effusion. No pneumothorax. LYMPH NODES: No significant adenopathy. LUNGS: No acute air space or interstitial disease. ADDITIONAL FINDINGS: None. UPPER ABDOMEN: No acute findings. SKELETAL STRUCTURES: No significant osseous abnormality. IMPRESSION: 1. No CT evidence for pulmonary embolism. 2. No acute findings. 3. Stable cardiomegaly. - Medical Decision Making This patient presents to the emergency department with a complaint of a few days of shortness of breath. He denies any chest pain or lower extremity edema. On examination the patient's heart and lungs are clear to auscultation. He does not have any respiratory or acute distress. A chest x-ray was done that does not show any pneumonia, pleural effusions, pneumothorax, or any other acute process. EKG does not show any signs of ST elevation ID. Patient's labs shows a elevated but equivocal d-dimer level. For this reason the patient had a CT angiography that does not show any evidence for pulmonary embolism or any other acute findings. Patient does have an elevated BNP of about 6000 consistent with a CHF exacerbation. Patient was given a dose of Lasix and has diuresed about 1 L. He was also given a breathing treatment. Upon reevaluation the patient says he is feeling greatly improved and is resting comfortably. Patient walked around the emergency department and there was no hypoxia or any significant increased work of breathing. 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 For all these reasons the patient will be discharged home. He was placed on Lasix twice daily and we discussed staying away from any excessive salt or excessive fluid intake. He will return to the emergency department with any worsening of his symptoms or any acute distress. Critical Care Time: No Critical care attestation.: If time is entered above; I have spent that time in minutes in the direct care of this critically ill patient, excluding procedure time. ED Disposition Clinical Impression: CHF exacerbation Qualifiers: Heart failure type: unspecified Qualified Code(s): I50.9 - Heart failure, unspecified Hypertension Qualifiers: Hypertension type: essential hypertension Qualified Code(s): I10 - Essential (primary) hypertension Disposition: TO HOME OR SELFCARE Is pt being admited?: No Condition: Stable Instructions: Heart Failure (ED), Hypertension (ED) Additional Instructions: Please follow-up with your restaurant area director on Friday. Take your medications as prescribed. Take the Lasix as prescribed. Try and stay away from foods that are high in salt and caffeinated products. Keep a blood pressure log. Return to the emergency department with any worsening of your symptoms or any acute distress. Prescriptions: Furosemide [Lasix] 20 mg PO BID #10 tablet Referrals: HAYDER BOLTON MD [Referring] - 2-3 Days Forms: Work/School Release Form(ED) Time of Disposition: 18:41
[2019-10-29] MEDS ORDERED: IPRATROPIUM/ALBUTEROL SULFATE 3 ML AMPUL.NEB IH ONE (15:23)
--- NOTE | 2019-10-29 17:47 | Cat Scan Report ---
CTA CHEST WITH IV CONTRAST INDICATION / CLINICAL INFORMATION: MAIN: SOB, elevated dimer 100mm 350omni. TECHNIQUE: Axial CT images were obtained through the chest after injection of 100 mL Omnipaque 350 IV contrast. 3 plane MIP and/or 3D reconstructions were produced. All CT scans at this location are performed usin g CT dose reduction for ALARA by means of automated exposure control. COMPARISON: Chest CT 06/01/2019 FINDINGS: PULMONARY ARTERIES: No pulmonary emboli. THORACIC AORTA: No significant abnormality. HEART: Stable cardiomegaly. CORONARY ARTERIES: No significant calcification. PLEURA: No pleural effusion. No pneumothorax. LYMPH NODES: No significant adenopathy. LUNGS: No acute air space or interstitial disease. ADDITIONAL FINDINGS: None. UPPER ABDOMEN: No acute findings. SKELETAL STRUCTURES: No significant osseous abnormality. IMPRESSION: 1. No CT evidence for pulmonary embolism. 2. No acute findings. 3. Stable cardiomegaly. Signer Name: Ariela Scott MD Signed: 10/29/2019 5:43 PM Workstation Name: [id number]
[2019-10-29 18:40] VITALS: BP 149/111
== END 2019-10-29 18:56 | disposition home or self-care (01) ==
LOC: ED 13:06
DX: I11.0 Hypertensive heart disease with heart failure (principal); I50.9 Heart failure, unspecified; Z79.899 Other long term (current) drug therapy
CPT/HCPCS: 36415; 71046; 71275; 80048; 83880; 85025; 85379; 85610; 93005; 94640; 96374; 99284; J1940; Q9967

== ENCOUNTER 2019-11-22 17:59 | Inpatient (IN) | payer BC ==
--- NOTE | 2019-11-22 18:28 | Event Note ---
ED Screening Note ED Screening Note: SOB that began yesterday worse with laying flat and exertion not able to lay flat no fever +nausea no cough no leg swelling no CP PMHx CHF, HTN states he took his blood pressure medication this morning, also takes spironolactone, carvedilol, statin, Ezetimibe This initial assessment/diagnostic orders/clinical plan/treatment(s) is/are subject to change based on patients health status, clinical progression and re- assessment by fellow clinical providers in the ED. Further treatment and workup at subsequent clinical providers discretion. Patient/guardian urged not to elope from the ED as their condition may be serious if not clinically assessed and managed. Initial orders include: labs, XR, ekg
--- NOTE | 2019-11-22 18:50 | Emergency Department Report ---
ED Shortness of Breath HPI - General Chief Complaint: Dyspnea/Respdistress Stated Complaint: SOB Time Seen by Provider: 11/22/19 18:24 Source: patient Mode of arrival: Ambulatory Limitations: No Limitations - History of Present Illness Initial Comments: 64-year-old male, history of hypertension, CHF (EF 25-30%), presents to ED with shortness of breath since yesterday. Patient denies fever, chest pain, cough, lower extremity pain or swelling. Patient reports some nausea today, however no vomiting or diarrhea. He denies any loss of smell or taste, or contact with anyone who has tested positive for coronavirus. Patient states he is unable to lay flat due to his dyspnea. Passenger Conductor: Dr Hoang LINARES Complaint: shortness of breath -: days(s) (2) Severity: moderate Consistency: constant Improves With: rest, upright position Worsens With: lying flat, exertion Known History Of: congestive heart failure Treatments Prior to Arrival: none - Related Data Home Oxygen Therapy: No Home Medications Medication Instructions Recorded Confirmed Last Taken Ezetimibe [Zetia] 10 mg PO DAILY 11/22/19 11/22/19 Unknown carvediloL [Coreg] 25 mg PO BID 11/22/19 11/22/19 Unknown lisinopriL [Zestril TAB] 20 tab PO QDAY 11/22/19 11/22/19 Unknown Previous Rx's Medication Instructions Recorded Last Taken Type Aspirin [Aspirin BABY CHEW TAB] 81 mg PO QDAY #30 tab.chew 06/02/19 Unknown Rx AtorvaSTATin [Lipitor] 40 mg PO QHS #30 tablet 06/02/19 Unknown Rx Spironolactone [Aldactone] 25 mg PO QDAY #30 tablet 06/02/19 Unknown Rx Allergies Allergy/AdvReac Type Severity Reaction Status Date / Time No Known Allergies Allergy Unverified 06/11/17 11:26 ED Review of Systems ROS: Stated complaint: SOB Other details as noted in HPI Comment: All other systems reviewed and negative Constitutional: denies: chills, fever Respiratory: orthopnea, SOB with exertion Cardiovascular: denies: chest pain Gastrointestinal: nausea. denies: vomiting, diarrhea Musculoskeletal: other (Denies leg pain or swelling) ED Past Medical Hx - Past Medical History Previous Medical History?: Yes Hx Hypertension: Yes Hx Congestive Heart Failure: Yes Additional medical history: Neck with pulled muscle, mild to moderate MR,E LEVATED CHOLESTEROL. nonobstructive CAD - Surgical History Past Surgical History?: Yes Additional Surgical History: high cholesterol - Social History Smoking Status: Unknown if ever smoked Substance Use Type: None - Medications Home Medications: Home Medications Medication Instructions Recorded Confirmed Last Taken Type Aspirin [Aspirin BABY CHEW TAB] 81 mg PO QDAY #30 tab.chew 06/02/19 11/22/19 Unknown Rx AtorvaSTATin [Lipitor] 40 mg PO QHS #30 tablet 06/02/19 11/22/19 Unknown Rx Spironolactone [Aldactone] 25 mg PO QDAY #30 tablet 06/02/19 11/22/19 Unknown Rx Ezetimibe [Zetia] 10 mg PO DAILY 11/22/19 11/22/19 Unknown History carvediloL [Coreg] 25 mg PO BID 11/22/19 11/22/19 Unknown History lisinopriL [Zestril TAB] 20 tab PO QDAY 11/22/19 11/22/19 Unknown History ED Physical Exam - General Limitations: No Limitations General appearance: alert - Head Head exam: Present: atraumatic, normocephalic - Eye Eye exam: Present: normal appearance - ENT ENT exam: Present: mucous membranes moist - Neck Neck exam: Present: normal inspection - Respiratory Respiratory exam: Present: rales (slight), other (Slightly tachypneic, decreased breath sounds on the right) - Cardiovascular Cardiovascular Exam: Present: normal rhythm, tachycardia - GI/Abdominal GI/Abdominal exam: Present: soft. Absent: distended, tenderness - Extremities Exam Extremities exam: Present: normal inspection. Absent: pedal edema, calf tenderness - Neurological Exam Neurological exam: Present: alert, oriented X3 - Psychiatric Psychiatric exam: Present: normal affect, normal mood - Skin Skin exam: Present: warm, dry, intact, normal color ED Course Vital Signs 11/22/19 11/22/19 11/22/19 18:03 18:29 19:03 Temperature 97.8 F 97.8 F Pulse Rate 110 H 110 H Respiratory 26 H 24 13 Rate Blood Pressure Blood Pressure 182/122 170/109 [Left] O2 Sat by Pulse 100 98 Oximetry 11/22/19 11/22/19 11/22/19 19:31 20:54 21:01 Temperature 98.2 F Pulse Rate 115 H 117 H 117 H Respiratory 17 22 18 Rate Blood Pressure 182/120 173/102 Blood Pressure 169/106 [Left] O2 Sat by Pulse 95 98 97 Oximetry 11/22/19 11/22/19 22:01 22:20 Temperature Pulse Rate 113 H 105 H Respiratory 22 Rate Blood Pressure 182/134 189/120 Blood Pressure [Left] O2 Sat by Pulse 99 Oximetry - Reevaluation(s) Reevaluation #1: 11/22/19 21:21 RN found pt using nasal decongestant. Likely cause of persistently elevated BP. Pt reports his nose is "always stopped up." States he suffers from sinus problems. Hasn't seen ENT in "a while." Informed pt to discontinue use and f/u w/ ENT. ED Medical Decision Making - Lab Data Result diagrams: 11/22/19 18:32 11/22/19 18:32 - EKG Data -: EKG Interpreted by Me EKG shows normal: sinus rhythm, axis, QRS complexes, ST-T waves Rate: tachycardia (rate 109) - EKG Data Interpretation: no acute changes, other (prolonged QT) - Radiology Data Radiology results: report reviewed, image reviewed - Medical Decision Making 64-year-old male with uncontrolled hypertension and CHF exacerbation. BNP elevated at 3000, patient reports dyspnea on exertion and also orthopnea. Chest x-ray does not show any pulmonary edema currently, however does show car diomegaly. Patient has EF of 25 to 30%. Patient had negative CTA chest approximately 1 month ago during ED visit for similar presentation. Patient has been given IV hydralazine and Lasix. Will admit to hospitalist, Dr Salinas, for further management. - Differential Diagnosis pneumonia, CHF, ACS Critical Care Time: Yes Critical care time in (mins) excluding proc time.: 35 Critical care attestation.: If time is entered above; I have spent that time in minutes in the direct care of this critically ill patient, excluding procedure time. Critical Care Time: 35 min ED Disposition Clinical Impression: Hypertensive emergency, Acute exacerbation of CHF (congestive heart failure) Disposition: OP ADMIT IP TO THIS HOSP Is pt being admited?: Yes Condition: Stable Time of Disposition: 22:33
[2019-11-22 18:59] LABS: Basophils # (Auto) 0.1 K/mm3 (0.0-0.1); Basophils % (Auto) 0.9 % (0.0-1.8); Eosinophils % (Auto) 0.2 % (0.0-4.3); Hematocrit 39.4 % (35.5-45.6); Hemoglobin 13.1 gm/dl (11.8-15.2); Lymphocytes # (Auto) 1.8 K/mm3 (1.2-5.4); Lymphocytes % (Auto) 19.6 % (13.4-35.0); Mean Corpuscular HGB Conc 33 % (32-34); Mean Corpuscular Volume 98 fl (84-94); Monocytes # (Auto) 0.8 K/mm3 (0.0-0.8); Monocytes % (Auto) 8.4 % (0.0-7.3); Platelet Count 192 K/mm3 (140-440); Red Blood Count 4.03 M/mm3 (3.65-5.03); Red Cell Distribution Width 13.4 % (13.2-15.2)
[2019-11-22 19:12] LABS: Alanine Aminotransferase 26 units/L (7-56); Albumin 4.4 g/dL (3.9-5); BUN/Creatinine Ratio 17; Blood Urea Nitrogen 10 mg/dL (9-20); Calcium 9.2 mg/dL (8.4-10.2); Hemolysis Index 7
[2019-11-22] MEDS ORDERED: hydrALAZINE 20 MG/1 ML INJ IV ONE ×2 (19:45→22:15)
[2019-11-22] MEDS ORDERED: FUROSEMIDE 40 MG/4 ML INJ IV ONE (21:32)
--- NOTE | 2019-11-22 22:03 | XRay Report ---
CHEST 1 VIEW INDICATION / CLINICAL INFORMATION: Dyspnea. COMPARISON: Chest radiograph 10/29/2019 FINDINGS: SUPPORT DEVICES: None. HEART / MEDIASTINUM: Stable. LUNGS / PLEURA: No significant pulmonary or pleural abnormality. No pneumothorax. IMPRESSION: No acute finding and no significant change. Signer Name: Chidi Edmonds MD Signed: 11/22/2019 9:59 PM Workstation Name: [id number]
[2019-11-22] MEDS ORDERED: MAGNESIUM HYDROXIDE (MOM) ORAL LIQD UDC PO PRN (22:44)
[2019-11-22] MEDS ORDERED: MORPHINE 2 MG/1 ML INJ IV PRN (22:44)
[2019-11-22] MEDS ORDERED: ONDANSETRON 4 MG/2 ML INJ IV PRN (22:44)
[2019-11-22] MEDS ORDERED: ACETAMINOPHEN 325 MG TAB PO PRN (22:44)
[2019-11-22] MEDS ORDERED: hydrALAZINE 20 MG/1 ML INJ IV PRN (22:50)
--- NOTE | 2019-11-22 22:57 | History and Physical Report ---
History of Present Illness Date of examination: 11/22/19 Date of admission: 11/22/19 22:33 Chief complaint: Shortness of breath History of present illness: 64-year-old male with known history of hypertension and CHF with ejection fraction of 25 to 30% presenting to the emergency room today complaining of shortness of breath for the past 2 days. Patient also indicates that he has had some nausea today but denies any vomiting or diarrhea. He denies any fever or chills, no chest pain, no lower extremity swelling, no sick contacts and no recent travel, denies contact with anyone with COVID-19. Patient also indicates that he has been using it nasal decongestant lately because he has also has had nasal congestion. Shortness of breath is said to be worse on exertion. He has also had difficulty lying down flat. Upon arrival in the emergency room blood pressure was found to be quite elevated with systolic in the 190s and diastolic in the 120s. He had some IV hydralazine with some improvement. Work-up reveals elevated BNP, cardiomegaly on the chest x-ray. Past History Past Medical History: CAD, hypertension, hyperlipidemia Past Surgical History: No surgical history Social history: no significant social history Family history: cancer (Mother from breast cancer) Medications and Allergies Allergies Allergy/AdvReac Type Severity Reaction Status Date / Time No Known Allergies Allergy Unverified 06/11/17 11:26 Home Medications Medication Instructions Recorded Confirmed Last Taken Type Aspirin [Aspirin BABY CHEW TAB] 81 mg PO QDAY #30 tab.chew 06/02/19 11/22/19 Unknown Rx AtorvaSTATin [Lipitor] 40 mg PO QHS #30 tablet 06/02/19 11/22/19 Unknown Rx Spironolactone [Aldactone] 25 mg PO QDAY #30 tablet 06/02/19 11/22/19 Unknown Rx Ezetimibe [Zetia] 10 mg PO DAILY 11/22/19 11/22/19 Unknown History carvediloL [Coreg] 25 mg PO BID 11/22/19 11/22/19 Unknown History lisinopriL [Zestril TAB] 20 tab PO QDAY 11/22/19 11/22/19 Unknown History Active Meds: Active Medications Acetaminophen (Tylenol) 650 mg PO Q4H PRN PRN Reason: Pain MILD(1-3)/Fever >100.5/LANDRY Furosemide (Lasix) 40 mg IV BID@0600,1800 [facility] Heparin Sodium (Porcine) (Heparin) 5,000 unit SUB-Q Q8HR JOSE ARMANDO Hydralazine HCl (Apresoline) 10 mg IV Q4HR PRN PRN Reason: Blood Pressure Magnesium Hydroxide (Milk Of Magnesia) 30 ml PO Q4H PRN PRN Reason: Constipation Morphine Sulfate (Morphine) 2 mg IV Q4H PRN PRN Reason: Pain, Moderate (4-6) Ondansetron HCl (Zofran) 4 mg IV Q8H PRN PRN Reason: Nausea And Vomiting Sodium Chloride (Sodium Chloride Flush Syringe 10 Ml) 10 ml IV BID JOSE ARMANDO Sodium Chloride (Sodium Chloride Flush Syringe 10 Ml) 10 ml IV PRN PRN PRN Reason: LINE FLUSH Review of Systems Constitutional: no fever, no chills Ears, nose, mouth and throat: nasal congestion, no sore throat Cardiovascular: orthopnea, shortness of breath, no chest pain, no palpitations Respiratory: no cough, no hemoptysis Gastrointestinal: no abdominal pain, no nausea, no vomiting, no diarrhea Genitourinary Male: no dysuria, no hematuria, no flank pain Musculoskeletal: no neck pain, no low back pain Integumentary: no rash, no pruritis Neurological: no headaches, no confusion Psychiatric: no anxiety, no depression Exam - Constitutional Vitals: Temp Pulse Resp BP Pulse Ox 98.2 F 105 H 22 189/120 99 11/22/19 20:54 11/22/19 22:20 11/22/19 22:01 11/22/19 22:20 11/22/19 22:01 General appearance: Present: no acute distress, well-nourished - EENT Eyes: Present: PERRL, EOM intact ENT: hearing intact, clear oral mucosa, dentition normal - Neck Neck: Present: supple, normal ROM - Respiratory Respiratory effort: normal Respiratory: bilateral: CTA - Cardiovascular Rhythm: regular Heart Sounds: Present: S1 & S2. Absent: gallop, systolic murmur, diastolic murmur, rub - Extremities Extremities: no ischemia, pulses intact, pulses symmetrical, No edema, Full ROM Peripheral Pulses: within normal limits - Abdominal General gastrointestinal: Present: soft, non-tender, non-distended, normal bowel sounds - Integumentary Integumentary: Present: clear, warm, dry. Absent: jaundice, rash - Musculoskeletal Musculoskeletal: strength equal bilaterally - Psychiatric Psychiatric: appropriate mood/affect, intact judgment & insight, memory intact, cooperative - Neurologic Neurologic: CNII-XII intact, no focal deficits, moves all extremities HEART Score - HEART Score Troponin: Troponin T < 0.010 ng/mL (0.00-0.029) 11/22/19 18:32 Results - Labs CBC & Chem 7: 11/22/19 18:32 11/22/19 18:32 Labs: Abnormal lab results 11/22/19 11/22/19 Range/Units 18:32 18:32 MCV 98 H (84-94) fl MCH 33 H (28-32) pg Mathews % (Auto) 8.4 H (0.0-7.3) % Seg Neutrophils % 70.9 H (40.0-70.0) % Creatinine 0.6 L (0.8-1.5) mg/dL AST 46 H (5-40) units/L NT-Pro-B Natriuret Pep 3303 H (0-900) pg/mL Total Protein 8.3 H (6.3-8.2) g/dL Assessment and Plan - Patient Problems (1) Acute exacerbation of CHF (congestive heart failure) Current Visit: Yes Status: Acute Plan to address problem: Patient has been placed on diuretics. Will monitor daily inputs and outputs. We also monitor daily weights. (2) Hypertensive emergency Current Visit: Yes Status: Acute Plan to address problem: Patient has been placed on IV hydralazine as needed. We also continue his routine home medications and monitor vital signs closely. (3) Hyperlipidemia Current Visit: Yes Status: Acute Plan to address problem: We will continue routine home medications and monitor lipid profile. (4) DVT prophylaxis Current Visit: Yes Status: Acute Plan to address problem: Patient placed on subcutaneous heparin. (5) Full code status Current Visit: Yes Status: Acute
[2019-11-22] MEDS ORDERED: ONDANSETRON 4 MG/2 ML INJ ONE (23:00)
[2019-11-22] MEDS ORDERED: MORPHINE 4 MG/1 ML INJ ONE (23:00)
[2019-11-22] MEDS ORDERED: MORPHINE 2 MG/1 ML INJ ONE (23:04)
[2019-11-23 04:20] LABS: Basophils # (Auto) 0.1 K/mm3 (0.0-0.1); Hematocrit 38.5 % (35.5-45.6); Hemoglobin 13.1 gm/dl (11.8-15.2); Lymphocytes # (Auto) 1.4 K/mm3 (1.2-5.4); Lymphocytes % (Auto) 14.2 % (13.4-35.0); Mean Corpuscular HGB Conc 34 % (32-34); Mean Corpuscular Volume 98 fl (84-94); Monocytes # (Auto) 0.8 K/mm3 (0.0-0.8); Monocytes % (Auto) 8.4 % (0.0-7.3); Platelet Count 188 K/mm3 (140-440); Red Blood Count 3.94 M/mm3 (3.65-5.03); Red Cell Distribution Width 13.1 % (13.2-15.2)
[2019-11-23 04:28] LABS: INR 1.11 (0.87-1.13)
[2019-11-23 04:44] LABS: BUN/Creatinine Ratio 13; Blood Urea Nitrogen 10 mg/dL (9-20); Calcium 9.3 mg/dL (8.4-10.2); Hemolysis Index 3
[2019-11-23] MEDS ORDERED: FUROSEMIDE 40 MG/4 ML INJ IV SCH (06:00)
[2019-11-23] MEDS: HEPARIN 5,000 UNIT/1 ML VIAL SUB-Q SCH ×3 (06:29→21:11)
[2019-11-23] MEDS: carvediloL 25 MG TAB PO SCH ×2 (09:42→21:11)
[2019-11-23] MEDS: EZETIMIBE 10 MG TAB PO SCH (09:42)
[2019-11-23] MEDS: SPIRONOLACTONE 25 MG TAB PO SCH (09:42)
[2019-11-23] MEDS: LISINOPRIL 20 MG TAB PO SCH (09:43)
[2019-11-23] MEDS: ASPIRIN 81 MG TAB CHEW PO SCH (09:43)
--- NOTE | 2019-11-23 10:42 | Progress Note ---
Assessment and Plan Assessment and plan: 64-year-old male with known history of hypertension and CHF with ejection fraction of 25 to 30% presenting to the emergency room today complaining of shortness of breath for the past 2 days. Patient also indicates that he has had some nausea today but denies any vomiting or diarrhea. He denies any fever or chills, no chest pain, no lower extremity swelling, no sick contacts and no recent travel, denies contact with anyone with COVID-19. Patient also indicates that he has been using it nasal decongestant lately because he has also has had nasal congestion. Shortness of breath is said to be worse on exertion. He has also had difficulty lying down flat. Upon arrival in the emergency room blood pressure was found to be quite elevated with systolic in the 190s and diastolic in the 120s. He had some IV hydralazine with some improvement. Work-up reveals elevated BNP, cardiomegaly on the chest x-ray. cxr: shows no acute finding (1) Acute exacerbation of CHF (congestive heart failure) Current Visit: Yes Status: Acute Plan to address problem: Patient has been placed on diuretics. Will monitor daily inputs and outputs. We also monitor daily weights. Anticipate discharge in a.m. Cardiology inputs appreciated (2) Hypertensive emergency Current Visit: Yes Status: Acute Plan to address problem: Patient has been placed on IV hydralazine as needed. We also continue his routine home medications and monitor vital signs closely. (3) Hyperlipidemia Current Visit: Yes Status: Acute Plan to address problem: We will continue routine home medications and monitor lipid profile. (4) DVT prophylaxis Current Visit: Yes Status: Acute Plan to address problem: Patient placed on subcutaneous heparin. (5) Full code status Current Visit: Yes Status: Acute History Interval history: Patient seen and examined clinically stable tolerating diet reports improvement in shortness of breath not quite at baseline yet. Hospitalist Physical - Physical exam Narrative exam: VITAL SIGNS: Reviewed. GENERAL: The patient appears normally developed, Vital signs as documented. HEAD: No signs of head trauma. EYES: Pupils are equal. Extraocular motions intact. EARS: Hearing grossly intact. MOUTH: Oropharynx is normal. NECK: No adenopathy, no JVD. CHEST: Chest with clear breath sounds bilaterally. No wheezes, rales, or rhonchi. CARDIAC: Regular rate and rhythm. S1 and S2, without murmurs, gallops, or rubs. VASCULAR: No Edema. Peripheral pulses normal and equal in all extremities. ABDOMEN: Soft, non tender and non distended. No rebound or guarding, and no masses palpated. Bowel Sounds normal. MUSCULOSKELETAL: Good range of motion of all major joints. Extremities without clubbing, cyanosis or edema. NEUROLOGIC EXAM: Alert and oriented x 3 No focal sensory or strength deficits. Speech normal. Follows commands. PSYCHIATRIC: Mood normal. SKIN: detial exam as documented in skin assessment - Constitutional Vitals: Temp Pulse Resp BP Pulse Ox 98.7 F 91 H 19 132/75 95 11/23/19 07:23 11/23/19 10:25 11/23/19 10:25 11/23/19 09:43 11/23/19 07:23 General appearance: Present: no acute distress, well-nourished HEART Score - HEART Score Troponin: Troponin T < 0.010 ng/mL (0.00-0.029) 11/22/19 23:37 Results - Labs CBC & Chem 7: 11/23/19 03:47 11/23/19 03:47 Labs: Laboratory Last Values WBC 9.7 K/mm3 (4.5-11.0) 11/23/19 03:47 RBC 3.94 M/mm3 (3.65-5.03) 11/23/19 03:47 Hgb 13.1 gm/dl (11.8-15.2) 11/23/19 03:47 Hct 38.5 % (35.5-45.6) 11/23/19 03:47 MCV 98 fl (84-94) H 11/23/19 03:47 MCH 33 pg (28-32) H 11/23/19 03:47 MCHC 34 % (32-34) 11/23/19 03:47 RDW 13.1 % (13.2-15.2) L 11/23/19 03:47 Plt Count 188 K/mm3 (140-440) 11/23/19 03:47 Lymph % (Auto) 14.2 % (13.4-35.0) 11/23/19 03:47 [place] % (Auto) 8.4 % (0.0-7.3) H 11/23/19 03:47 Eos % (Auto) 0.0 % (0.0-4.3) 11/23/19 03:47 Baso % (Auto) 1.0 % (0.0-1.8) 11/23/19 03:47 Lymph # 1.4 K/mm3 (1.2-5.4) 11/23/19 03:47 [place] # 0.8 K/mm3 (0.0-0.8) 11/23/19 03:47 Eos # 0.0 K/mm3 (0.0-0.4) 11/23/19 03:47 Baso # 0.1 K/mm3 (0.0-0.1) 11/23/19 03:47 Seg Neutrophils % 76.4 % (40.0-70.0) H 11/23/19 03:47 Seg Neutrophils # 7.4 K/mm3 (1.8-7.7) 11/23/19 03:47 PT 14.1 Sec. (12.2-14.9) 11/23/19 03:47 INR 1.11 (0.87-1.13) 11/23/19 03:47 Sodium 142 mmol/L (137-145) 11/23/19 03:47 Potassium 4.0 mmol/L (3.6-5.0) 11/23/19 03:47 Chloride 95.8 mmol/L (98-107) L 11/23/19 03:47 Carbon Dioxide 27 mmol/L (22-30) 11/23/19 03:47 Anion Gap 23 mmol/L 11/23/19 03:47 BUN 10 mg/dL (9-20) 11/23/19 03:47 Creatinine 0.8 mg/dL (0.8-1.5) 11/23/19 03:47 Estimated GFR > 60 ml/min 11/23/19 03:47 BUN/Creatinine Ratio 13 % 11/23/19 03:47 Glucose 91 mg/dL (75-100) 11/23/19 03:47 Calcium 9.3 mg/dL (8.4-10.2) 11/23/19 03:47 Total Bilirubin 1.10 mg/dL (0.1-1.2) 11/22/19 18:32 AST 46 units/L (5-40) H 11/22/19 18:32 ALT 26 units/L (7-56) 11/22/19 18:32 Alkaline Phosphatase 93 units/L (35-129) 11/22/19 18:32 Troponin T < 0.010 ng/mL (0.00-0.029) 11/22/19 23:37 NT-Pro-B Natriuret Pep 3303 pg/mL (0-900) H 11/22/19 18:32 Total Protein 8.3 g/dL (6.3-8.2) H 11/22/19 18:32 Albumin 4.4 g/dL (3.9-5) 11/22/19 18:32 Albumin/Globulin Ratio 1.1 % 11/22/19 18:32 [place]/IV: Voiding Method Toilet IV Catheter Type [Right Peripheral IV Forearm] IV Catheter Type [Right INT / Saline Lock Forearm] Active Medications - Current Medications Current Medications: Generic Name Dose Route Start Last Admin Trade Name Freq PRN Reason Stop Dose Admin Acetaminophen 650 mg 11/22/19 22:44 11/23/19 07:13 Tylenol PO 650 mg Q4H PRN Administration Pain MILD(1-3)/Fever >100.5/LANDRY Aspirin 81 mg 11/23/19 10:00 11/23/19 09:43 Baby Aspirin PO 81 mg QDAY [facility] Administration Atorvastatin Calcium 40 mg 11/23/19 22:00 Lipitor PO QHS [facility] Carvedilol 25 mg 11/23/19 10:00 11/23/19 09:42 Coreg PO 25 mg BID JOSE ARMANDO Administration Ezetimibe 10 mg 11/23/19 10:00 11/23/19 09:42 Zetia PO 10 mg DAILY JOSE ARMANDO Administration Furosemide 40 mg 11/23/19 06:00 11/23/19 06:20 Lasix IV Not Given BID@0600,1800 [facility] Heparin Sodium (Porcine) 5,000 unit 11/23/19 06:00 11/23/19 06:29 Heparin SUB-Q 5,000 unit Q8HR JOSE ARMANDO Administration Hydralazine HCl 10 mg 11/22/19 22:50 Apresoline IV Q4HR PRN Blood Pressure Lisinopril 20 mg 11/23/19 10:00 11/23/19 09:43 Zestril PO 20 mg QDAY [facility] Administration Magnesium Hydroxide 30 ml 11/22/19 22:44 Milk Of Magnesia PO Q4H PRN Constipation Morphine Sulfate 2 mg 11/22/19 22:44 11/22/19 23:03 Morphine IV 2 mg Q4H PRN Administration Pain, Moderate (4-6) Ondansetron HCl 4 mg 11/22/19 22:44 11/22/19 23:02 Zofran IV 4 mg Q8H PRN Administration Nausea And Vomiting Sodium Chloride 10 ml 11/23/19 10:00 11/23/19 09:43 Sodium Chloride Flush Syringe 10 Ml IV 10 ml BID JOSE ARMANDO Administration Sodium Chloride 10 ml 11/22/19 22:44 Sodium Chloride Flush Syringe 10 Ml IV PRN PRN LINE FLUSH Spironolactone 25 mg 11/23/19 10:00 11/23/19 09:42 Aldactone PO 25 mg QDAY JOSE ARMANDO Administration
--- NOTE | 2019-11-23 11:25 | Consultation ---
History of Present Illness Consult date: 11/23/19 Requesting physician: PAULETTE MARIA Consult reason: congestive heart failure History of present illness: The patient is a 64 YO male with a past medical history of NICMP and nonobstructive CAD documented on coronary angiography in 2013, mod MR, HTN, HLP. He has been seen by our practice on prior admission and is regularly followed by [facility]. He presented with c/o SOB, PND, orthopnea for 1 day prior to arrival. Patient also indicates that he has been using it nasal decongestant lately because he has also has had nasal congestion. Upon arrival in the emergency room blood pressure was found to be quite elevated with systolic in the 190s and diastolic in the 120s. He had some IV hydralazine with some improvement. Pt d enies chest pain, palpitations, n/v, diaphoresis, dizziness or syncope. He states that he is feeling better today since receiving IV lasix overnight. Echo done 05/2019 showed EF 25-30%, LA mod dilated, RA mild to mod dilated, mod MR, mild TR, LV mod dilated, RV mildly dilated. Past History Past Medical History: CAD, heart failure, hypertension, hyperlipidemia, other (as per HPI) Past Surgical History: No surgical history Social history: no significant social history Family history: cancer (Mother from breast cancer) Medications and Allergies Allergies Allergy/AdvReac Type Severity Reaction Status Date / Time No Known Allergies Allergy Unverified 06/11/17 11:26 Home Medications Medication Instructions Recorded Confirmed Last Taken Type Aspirin [Aspirin BABY CHEW TAB] 81 mg PO QDAY #30 tab.chew 06/02/19 11/22/19 Unknown Rx AtorvaSTATin [Lipitor] 40 mg PO QHS #30 tablet 06/02/19 11/22/19 Unknown Rx Spironolactone [Aldactone] 25 mg PO QDAY #30 tablet 06/02/19 11/22/19 Unknown Rx Ezetimibe [Zetia] 10 mg PO DAILY 11/22/19 11/22/19 Unknown History carvediloL [Coreg] 25 mg PO BID 11/22/19 11/22/19 Unknown History lisinopriL [Zestril TAB] 20 tab PO QDAY 11/22/19 11/22/19 Unknown History Active Meds: Active Medications Acetaminophen (Tylenol) 650 mg PO Q4H PRN PRN Reason: Pain MILD(1-3)/Fever >100.5/LANDRY Last Admin: 11/23/19 07:13 Dose: 650 mg Documented by: Aspirin (Baby Aspirin) 81 mg PO QDAY [facility] Last Admin: 11/23/19 09:43 Dose: 81 mg Documented by: Atorvastatin Calcium (Lipitor) 40 mg PO QHS [facility] Carvedilol (Coreg) 25 mg PO BID [facility] Last Admin: 11/23/19 09:42 Dose: 25 mg Documented by: Ezetimibe (Zetia) 10 mg PO DAILY [facility] Last Admin: 11/23/19 09:42 Dose: 10 mg Documented by: Furosemide (Lasix) 40 mg IV BID@0600,1800 [facility] Last Admin: 11/23/19 06:20 Dose: Not Given Documented by: Heparin Sodium (Porcine) (Heparin) 5,000 unit SUB-Q Q8HR [facility] Last Admin: 11/23/19 06:29 Dose: 5,000 unit Documented by: Hydralazine HCl (Apresoline) 10 mg IV Q4HR PRN PRN Reason: Blood Pressure Lisinopril (Zestril) 20 mg PO QDAY [facility] Last Admin: 11/23/19 09:43 Dose: 20 mg Documented by: Magnesium Hydroxide (Milk Of Magnesia) 30 ml PO Q4H PRN PRN Reason: Constipation Morphine Sulfate (Morphine) 2 mg IV Q4H PRN PRN Reason: Pain, Moderate (4-6) Last Admin: 11/22/19 23:03 Dose: 2 mg Documented by: Ondansetron HCl (Zofran) 4 mg IV Q8H PRN PRN Reason: Nausea And Vomiting Last Admin: 11/22/19 23:02 Dose: 4 mg Documented by: Sodium Chloride (Sodium Chloride Flush Syringe 10 Ml) 10 ml IV BID [facility] Last Admin: 11/23/19 09:43 Dose: 10 ml Documented by: Sodium Chloride (Sodium Chloride Flush Syringe 10 Ml) 10 ml IV PRN PRN PRN Reason: LINE FLUSH Spironolactone (Aldactone) 25 mg PO QDAY [facility] Last Admin: 11/23/19 09:42 Dose: 25 mg Documented by: Review of Systems Constitutional: no weight loss, no weight gain, no fever, no chills, no sweats Ears, nose, mouth and throat: no ear pain, no nose pain, no sinus pressure, no s inus pain Cardiovascular: orthopnea, shortness of breath, dyspnea on exertion, paroxysmal nocturnal dyspnea, high blood pressure, no chest pain, no palpitations, no rapid/irregular heart beat, no edema, no syncope, no lightheadedness, no leg edema Respiratory: shortness of breath, dyspnea on exertion, no cough, no congestion, no wheezing, no pain on inspiration Gastrointestinal: no abdominal pain, no nausea, no vomiting, no diarrhea, no constipation, no change in bowel habits Genitourinary Male: no dysuria, no hematuria, no flank pain, no discharge, no urinary frequency, no urinary hesitancy Musculoskeletal: no neck stiffness, no neck pain, no shooting arm pain, no arm numbness/tingling, no low back pain, no shooting leg pain Integumentary: no rash, no pruritis, no redness, no sores, no wounds Neurological: no head injury, no paralysis, no weakness, no parathesias, no numbness, no tingling, no seizures, no syncope Psychiatric: no anxiety Endocrine: no cold intolerance, no heat intolerance Hematologic/Lymphatic: no easy bruising, no easy bleeding Allergic/Immunologic: no urticaria Physical Examination Vital Signs Resp 26 H 11/22/19 18:03 General appearance: no acute distress HEENT: Positive: PERRL, Normocephaly, Mucus Membranes Moist Neck: Positive: neck supple, trachea midline Cardiac: Positive: Reg Rate and Rhythm, S1/S2 Lungs: Positive: Decreased Breath Sounds Neuro: Positive: Grossly Intact Abdomen: Negative: Tender Skin: Negative: Rash Musculoskeletal: No Pain Extremities: Absent: edema Results 11/23/19 03:47 11/23/19 03:47 Cardiac Enzymes 11/22/19 Range/Units 18:32 AST 46 H (5-40) units/L Coagulation 11/23/19 Range/Units 03:47 PT 14.1 (12.2-14.9) Sec. INR 1.11 (0.87-1.13) CBC 11/22/19 11/23/19 Range/Units 18:32 03:47 WBC 9.0 9.7 (4.5-11.0) K/mm3 RBC 4.03 3.94 (3.65-5.03) M/mm3 Hgb 13.1 13.1 (11.8-15.2) gm/dl Hct 39.4 38.5 (35.5-45.6) % Plt Count 192 188 (140-440) K/mm3 Lymph # 1.8 1.4 (1.2-5.4) K/mm3 [place] # 0.8 0.8 (0.0-0.8) K/mm3 Eos # 0.0 0.0 (0.0-0.4) K/mm3 Baso # 0.1 0.1 (0.0-0.1) K/mm3 Comprehensive Metabolic Panel 11/22/19 11/23/19 Range/Units 18:32 03:47 Sodium 141 142 (137-145) mmol/L Potassium 4.0 4.0 (3.6-5.0) mmol/L Chloride 100.4 95.8 L (98-107) mmol/L Carbon Dioxide 22 27 (22-30) mmol/L BUN 10 10 (9-20) mg/dL Creatinine 0.6 L 0.8 (0.8-1.5) mg/dL Glucose 96 91 (75-100) mg/dL Calcium 9.2 9.3 (8.4-10.2) mg/dL AST 46 H (5-40) units/L ALT 26 (7-56) units/L Alkaline Phosphatase 93 (35-129) units/L Total Protein 8.3 H (6.3-8.2) g/dL Albumin 4.4 (3.9-5) g/dL - Imaging and Cardiology Echo: report reviewed (05/2019 showed EF 25-30%, LA mod dilated, RA mild to mod dilated, mod MR, mild TR, LV mod dilated, RV mildly dilated. ) EKG: report reviewed, image reviewed EKG interpretations - Telemetry EKG Rhythm: Sinus Rhythm - EKG Sinus rhythms and dysrhythmias: sinus rhythm Assessment and Plan Agree with IV diuretics and GDMT as tolerated. Anticipate d/c in AM. The patient has been seen in conjunction with Dr. Steiner who agrees with the assessment and plan of care. - Patient Problems (1) Acute on chronic HFrEF (heart failure with reduced ejection fraction) Current Visit: Yes Status: Acute (2) Nonischemic cardiomyopathy Current Visit: Yes Status: Chronic (3) Nonobstructive atherosclerosis of coronary artery Current Visit: Yes Status: Chronic (4) Accelerated hypertension Current Visit: Yes Status: Acute (5) Hyperlipidemia Current Visit: Yes Status: Chronic
[2019-11-24 04:24] VITALS: BP 111/77
[2019-11-24 05:10] LABS: Hematocrit 38.4 % (35.5-45.6); Hemoglobin 13.1 gm/dl (11.8-15.2); Mean Corpuscular HGB Conc 34 % (32-34); Mean Corpuscular Volume 96 fl (84-94); Platelet Count 169 K/mm3 (140-440); Red Blood Count 3.99 M/mm3 (3.65-5.03); Red Cell Distribution Width 13.2 % (13.2-15.2)
[2019-11-24 05:27] LABS: BUN/Creatinine Ratio 18; Blood Urea Nitrogen 20 mg/dL (9-20); Calcium 8.2 mg/dL (8.4-10.2); Hemolysis Index 5
[2019-11-24] MEDS ORDERED: POTASSIUM CHLORIDE ER 20 MEQ TAB PO ONE (05:54)
[2019-11-24] MEDS: HEPARIN 5,000 UNIT/1 ML VIAL SUB-Q SCH ×2 (06:04→14:30)
[2019-11-24] MEDS ORDERED: POTASSIUM CHLORIDE ER 20 MEQ TAB PO NR (09:30)
--- NOTE | 2019-11-24 09:33 | Discharge Summary ---
Providers - Providers Date of Admission: 11/22/19 22:33 Attending physician: PAULETTE MARIA MD 11/23/19 08:19 Consult to Physician [CONS] Routine Comment: Consulting Provider: SPENCER HALE Physician Instructions: Reason For Exam: chf Primary care physician: [employer]IST Hospitalization Reason for admission: Shortness of breath Condition: Stable Hospital course: 64-year-old male with known history of hypertension and CHF with ejection fraction of 25 to 30% presenting to the emergency room today complaining of shortness of breath for the past 2 days. Patient also indicates that he has had some nausea today but denies any vomiting or diarrhea. He denies any fever or chills, no chest pain, no lower extremity swelling, no sick contacts and no recent travel, denies contact with anyone with COVID-19. Patient also indicates that he has been using it nasal decongestant lately because he has also has had nasal congestion. Shortness of breath is said to be worse on exertion. He has also had difficulty lying down flat. Upon arrival in the emergency room blood pressure was found to be quite elevated with systolic in the 190s and diastolic in the 120s. He had some IV hydralazine with some improvement. Work-up reveals elevated BNP, cardiomegaly on the chest x-ray. cxr: shows no acute finding 11/23: Patient clinically improved, Ok to discharge on oral diuretics and have outpatient cardiology follow up. Discussed extensively dietary compliance and medication compliance. (1) Acute on chronic HFrEF (heart failure with reduced ejection fraction) Current Visit: Yes Status: Acute (2) Nonischemic cardiomyopathy Current Visit: Yes Status: Chronic (3) Nonobstructive atherosclerosis of coronary artery Current Visit: Yes Status: Chronic (4) Accelerated hypertension Current Visit: Yes Status: Acute (5) Hyperlipidemia Current Visit: Yes Status: Chronic Disposition: TO HOME OR SELFCARE Time spent for discharge: 35 mins Core Measure Documentation - Palliative Care Palliative Care/ Comfort Measures: Not Applicable - Core Measures Any of the following diagnoses?: heart failure - Heart Failure Discharge Requirements LETICIA/ARB for LVSD if EF <40%: Yes Beta dudley at discharge: Yes Exam - Physical Exam Narrative exam: VITAL SIGNS: Reviewed. GENERAL: The patient appears normally developed, Vital signs as documented. HEAD: No signs of head trauma. EYES: Pupils are equal. Extraocular motions intact. EARS: Hearing grossly intact. MOUTH: Oropharynx is normal. NECK: No adenopathy, no JVD. CHEST: Chest with clear breath sounds bilaterally. No wheezes, rales, or rhonchi. CARDIAC: Regular rate and rhythm. S1 and S2, without murmurs, gallops, or rubs. VASCULAR: No Edema. Peripheral pulses normal and equal in all extremities. ABDOMEN: Soft, non tender and non distended. No rebound or guarding, and no masses palpated. Bowel Sounds normal. MUSCULOSKELETAL: Good range of motion of all major joints. Extremities without clubbing, cyanosis or edema. NEUROLOGIC EXAM: Alert and oriented x 3 No focal sensory or strength deficits. Speech normal. Follows commands. PSYCHIATRIC: Mood normal. SKIN: detial exam as documented in skin assessment - Constitutional Vitals: Temp Pulse Resp BP Pulse Ox 98.2 F 85 16 111/77 97 11/24/19 03:58 11/24/19 03:58 11/24/19 03:58 11/24/19 03:58 11/24/19 03:58 Plan Activity: advance as tolerated, fall precautions Diet: low fat, low salt Special Instructions: record daily weights, record daily BP diary Follow up with: PRIMARY CARE, [Primary Care Provider] - 3-5 Days LIZZY IRBY MD [Staff Physician] - 7 Days Forms: Discharge Signature Page, Work/School Release Form Prescriptions: Furosemide [Lasix TAB] 40 mg PO QDAY #30 tablet
[2019-11-24] MEDS ORDERED: FUROSEMIDE 40 MG/4 ML INJ IV SCH (10:00)
[2019-11-24] MEDS ORDERED: POTASSIUM CHLORIDE 10 MEQ 10 MEQ/100 ML BAG IV SCH (10:00)
[2019-11-24] MEDS: carvediloL 25 MG TAB PO SCH (10:13)
[2019-11-24] MEDS: EZETIMIBE 10 MG TAB PO SCH (10:13)
[2019-11-24] MEDS: ASPIRIN 81 MG TAB CHEW PO SCH (10:13)
[2019-11-24] MEDS: LISINOPRIL 20 MG TAB PO SCH (10:13)
[2019-11-24] MEDS: SPIRONOLACTONE 25 MG TAB PO SCH (10:13)
--- NOTE | 2019-11-24 10:40 | Progress Note ---
Assessment and Plan Currently stable cardiac status. Pt appears to be nearing/at euvolemia. Await echo. Pending echo does not show any significant findings, pt may discharge from cardiology standpoint on home cardiac regimen. Of note, pt has declined AICD in the past. Recommend AICD candidacy be readdressed with pt's primary cardiology team as OP. Recommend pt follow up with [facility] within 1 week. Pt verbalizes understanding. The patient has been seen in conjunction with Dr. Steiner who agrees with the assessment and plan of care. - Patient Problems (1) Acute on chronic HFrEF (heart failure with reduced ejection fraction) Current Visit: Yes Status: Acute (2) Nonischemic cardiomyopathy Current Visit: Yes Status: Chronic (3) Nonobstructive atherosclerosis of coronary artery Current Visit: Yes Status: Chronic (4) Accelerated hypertension Current Visit: Yes Status: Acute (5) Hyperlipidemia Current Visit: Yes Status: Chronic (6) NSVT (nonsustained ventricular tachycardia) Current Visit: Yes Status: Acute Subjective Date of service: 11/24/19 Principal diagnosis: HF Interval history: pt resting up in chair, states he is feeling much better today, no current complaints. tele reviewed - in SR with 5 beat run NSVT overnight, pt asym ptomatic. Objective Last Vital Signs Temp 98.2 F 11/24/19 03:58 Pulse 85 11/24/19 03:58 Resp 16 11/24/19 03:58 BP 111/77 11/24/19 03:58 Pulse Ox 97 11/24/19 03:58 - Physical Examination General: No Apparent Distress HEENT: Positive: PERRL, Normocephaly, Mucus Membranes Moist Neck: Positive: neck supple, trachea midline Cardiac: Positive: Reg Rate and Rhythm, S1/S2 Lungs: Positive: Decreased Breath Sounds Neuro: Positive: Grossly Intact Abdomen: Negative: Tender Skin: Negative: Rash Musculoskeletal: No Pain Extremities: Absent: edema - Labs and Meds CBC 11/24/19 Range/Units 04:30 WBC 7.4 (4.5-11.0) K/mm3 RBC 3.99 (3.65-5.03) M/mm3 Hgb 13.1 (11.8-15.2) gm/dl Hct 38.4 (35.5-45.6) % Plt Count 169 (140-440) K/mm3 Comprehensive Metabolic Panel 11/24/19 Range/Units 04:30 Sodium 137 (137-145) mmol/L Potassium 3.1 L D (3.6-5.0) mmol/L Chloride 95.1 L (98-107) mmol/L Carbon Dioxide 26 (22-30) mmol/L BUN 20 (9-20) mg/dL Creatinine 1.1 (0.8-1.5) mg/dL Glucose 100 (75-100) mg/dL Calcium 8.2 L (8.4-10.2) mg/dL - Imaging and Cardiology EKG: report reviewed, image reviewed Echo: report reviewed (05/2019 showed EF 25-30%, LA mod dilated, RA mild to mod dilated, mod MR, mild TR, LV mod dilated, RV mildly dilated. ) - Telemetry EKG Rhythm: Sinus Rhythm - EKG Sinus rhythms and dysrhythmias: sinus rhythm
== END 2019-11-24 15:35 | disposition home or self-care (01) | DRG 304 ==
LOC: ED 17:59 → 4A 22:33
PROVIDERS: ADMIT Internal Medicine Geriatric Medicine; ATTEND Internal Medicine
DX: I16.1 Hypertensive emergency (principal); I50.23 Acute on chronic systolic (congestive) heart failure; I47.2 Ventricular tachycardia; I42.8 Other cardiomyopathies; I11.0 Hypertensive heart disease with heart failure; E78.00 Pure hypercholesterolemia, unspecified; I25.10 Atherosclerotic heart disease of native coronary artery without angina pectoris; E78.5 Hyperlipidemia, unspecified; Z79.82 Long term (current) use of aspirin; Z79.84 Long term (current) use of oral hypoglycemic drugs; Z79.899 Other long term (current) drug therapy; Z80.3 Family history of malignant neoplasm of breast; Z79.891 Long term (current) use of opiate analgesic
CPT/HCPCS: 36415; 71045; 80048; 80053; 83880; 84484; 85025; 85027; 85610; 93005; G0378; A9270-GY; J0360; J1644; J1940; J2270; J2405